=== PATIENT | male | born 1995 ===

== ENCOUNTER 2022-11-14 10:48 | Outpatient (REF) | payer OTHER, SELFPAY ==
[2022-11-14 11:35] LABS: Hematocrit 48.4 % (42.0-52.0); Hemoglobin 15.6 g/dl (14.0-18.0); Mean Corpuscular HGB Conc 32.2 g/dl (31.0-36.0); Mean Corpuscular Hemoglobin 27.8 pg (27.0-33.0); Mean Corpuscular Volume 86.1 fL (80.0-98.0); Mean Platelet Volume 8.8 fL (9.4-12.4); Platelet Count 374 X10*3/uL (160-400); Red Blood Count 5.62 X10*6/uL (4.60-5.80); Red Cell Distribution Width 12.7 % (11.0-16.0); White Blood Count 9.4 X10*3/uL (4.8-10.8)
[2022-11-14 13:11] LABS: Alanine Aminotransferase 52 U/L (0-40); Albumin Level 4.6 g/dL (3.5-5.0); Alkaline Phosphatase 75 U/L (39-117); Anion Gap 13 (12-20); Aspartate Amino Transferase 32 U/L (5-37); Bilirubin Total 0.4 mg/dL (0.0-1.0); Blood Urea Nitrogen 11 mg/dL (9-16); Calcium 10.3 mg/dL (8.4-10.2); Carbon Dioxide 25 mmol/L (22-29); Chloride 104 mmol/L (96-108); Cholesterol 264 mg/dL; Estimated Glomerular Filt Rate > 60; Glucose Fasting 88 mg/dL (60-99); HDL Cholesterol 29 mg/dL; Sodium 138 mmol/L (135-145); TSH reflex Free T4 4.81 uIU/mL (0.32-4.0); Total Protein 8.5 g/dL (6.5-8.0); Triglycerides 431 mg/dL
[2022-11-14 13:51] LABS: Free T4 (Free Thyroxine) 0.85 ng/dL (0.71-1.85)
== END 2022-11-14 10:49 | disposition home or self-care (01) ==
LOC: HO.LAB 10:48
PROVIDERS: PCP Physician Assistant; Visit Provider Physician Assistant
DX: Z13.29 Encounter for screening for other suspected endocrine disorder (principal); E66.09 Other obesity due to excess calories; Z68.38 Body mass index [BMI] 38.0-38.9, adult
CPT/HCPCS: 36415; 80053; 80061; 84439; 84443; 85027

== ENCOUNTER 2022-11-16 13:56 | Outpatient (AMB) | payer OTHER, SELFPAY ==
[2022-11-16 13:58] VITALS: BP 136/72; PULSE 80; O2SAT 98; BMI 40.0
--- NOTE | 2022-11-16 13:58 | MHC.PC.OV ---
Vital Signs 11/16/22 13:58 Height 5 ft 11 in Weight 287 lb BMI 40.0 BP 136/72 Blood Pressure Location Lt brachial Position Sitting Pulse 80 Pulse Source Pulse Oximeter Pulse Oximetry (%) 98 Oxygen Delivery Method Room Air Intake Visit Reasons: Annual PE Allergies No Known Allergies Allergy (Verified 11/16/22 14:09) Medication List - Last Reconciled 11/16/22 by Raghu Tan PA-C No Known Home Meds Tobacco use date assessed: 07/11/22 Dental Screening Dental Screen Date: 11/16/22 Did you have a dental visit in the last 12 months?: Yes Did you have a dental problem in the last 6 months where you did not have access to dental care?: No Was dental information given to patient?: Patient has dentist HPI Annual PE HPI Details Patient is a 26-year-old male Turkmen-speaking only here today for routine annual physical Patient's past medical history significant for generalized anxiety disorder major depressive disorder, obesity Reviewed labs today in a his with patient family and noted slightly elevated liver enzymes and an elevated TSH. Obesity: Has unfortunately gained weight since last office visit. Depression/ anxiety: Patient is interested in starting to speak with a mental health therapist for cognitive behavioral therapy Vaccine: Needs Tdap up-to-date with COVID vaccine ? Laboratory Tests 11/14/22 11/14/22 11:16 11:16 RBC 5.62 ALT 52 H Cholesterol 264 TSH 4.81 H PFSH Surgical History No pertinent past surgical history Family History Mother No problems noted. Father Hypertension Social History Housing: Apartment Alcohol intake: never Patient Tobacco Use Status: Never used Tobacco e-Cigarette/Vaping Use: Never Used Second Hand Smoke Exposure: No service: No Current occupational status: unemployed Cognitive needs: No Hearing needs: No Vision needs: No Questionnaire PHQ-9 Over the last 2 weeks, how often have you been bothered by any of the following problems? 1. Little interest or pleasure in doing things: more than half the days 2. Feeling down, depressed, or hopeless: more than half the days 3. Trouble falling or staying asleep, or sleeping too much: not at all 4. Feeling tired or having little energy: not at all 5. Poor appetite or overeating: more than half the days 6. Feeling bad about yourself - or that you are a failure or have let yourself or your family down: nearly every day 7. Trouble concentrating on things, such as reading the newspaper or watching television: nearly every day 8. Moving or speaking so slowly that other people could have noticed. Or the opposite - being so fidgety or restless that you have been moving around a lot more than usual: more than half the days 9. Thoughts that you would be better off or of hurting yourself in some way: not at all Total score: 14 Depression Screening Interpretation: Positive 42750 - PHQ-9 Billing: Yes Source: Developed by Drs. Houston Coles, Pau Leary, Murray Quick and colleagues, with an educational rios from [employer]. Thrive Questionnaire Date Thrive assessed: 07/11/22 AUDIT C Alcohol Use Questionnaire (AUDIT-C) 1. How often do you have a drink containing alcohol?: Never Total Score: 0 JAMES-7 AMB Questionnaire JAMES-7 Date JAMES - 7 assessed: 11/16/22 Feeling nervous, anxious, or on edge: 3 = Nearly every day Not being able to stop or control worryin = Nearly every day Worrying too much about different things: 3 = Nearly every day Trouble relaxin = Nearly every day Being so restless that it is hard to sit still: 0 = Not at all Becoming easily annoyed or irritable: 3 = Nearly every day Feeling afraid as if something awful might happen: 0 = Not at all Total JAMES-7 score (0-4 normal; 5-9 mild; 10-14 moderate; 15-21 severe): 15 Source: Developed by Drs. Houston Coles, Pau Leary, Murray Quick and colleagues, with an educational rios from [employer]. JAMES-7 Assessment Billing JAMES-7 Assessment Tool: JAMES-7 Assessment 83859 Review of Systems Const Denies body aches, Denies chills, Denies excessive sweating, Denies fatigue, Denies fever(s) and Denies headache(s) Eyes Denies blurry vision ENT Denies dysphagia, Denies vertigo, Denies dizziness, Denies headache(s), Denies hearing loss and Denies tinnitus Card Denies chest pain, Denies chest pain with activity, Denies syncope, Denies irregular heart rhythm and Denies dyspnea Resp Denies chest congestion, Denies cough, Denies hemoptysis, Denies dyspnea and Denies wheezing GI Denies abdominal pain, Denies melena, Denies hematochezia, Denies coffee ground emesis, Denies dysphagia, Denies diarrhea, Denies nausea and Denies vomiting Denies difficulty urinating, Denies dysuria, Denies urinary frequency, Denies urinary hesitancy and Denies urinary urgency Musc Denies arthralgias, Denies limited range of motion, Denies muscle cramps and Denies muscle weakness Skin/Breast Denies rash and Denies skin ulcer Neuro Denies Abnormal speech present, Denies confusion, Denies vertigo, Denies dizziness, Denies syncope, Denies headache(s), Denies memory loss and Denies seizure-like activity Psych Denies anxiety, Denies confusion, Denies depression, Denies memory loss, Denies panic attacks and Denies paranoia Endo Denies excessive sweating, Denies fatigue, Denies flushing, Denies polydipsia and Denies polyuria Aller/Immun Denies wheezing Physical exam (Primary Care) Vital Signs: Last Vital Signs Pulse 80 11/16/22 13:58 BP 136/72 11/16/22 13:58 Pulse Ox 98 11/16/22 13:58 Oxygen Delivery Method Room Air 11/16/22 13:58 BMI result Body Mass Index 40.0 BMI Assessment/Plan discussion: High Tobacco/Smoking Status: Tobacco use Status Tobacco use date assessed 07/11/22 11/16/22 14:06 Patient Tobacco Use Status Never used Tobacco 11/16/22 14:06 e-Cigarette/Vaping Use Never Used 11/16/22 14:06 PHQ-9: PHQ-9 Score PHQ-9: Total score 14 11/16/22 14:28 Depression Screening Interpretation: Positive Thrive Assessment: Date of Thrive Assessment Date Thrive assessed 07/11/22 11/16/22 14:06 Const Other: Obese General: cooperative, comfortable, no acute distress, alert and awake; No confusion Orientation/consciousness: oriented to person, oriented to place, patient oriented x3 and No confusion HENMT Head: Yes normocephalic Ears: external ears normal and TM's normal bilaterally Face and sinus: No sinus tenderness Mouth: Normal oral and palatal mucosa present and tongue normal Teeth and gingiva: dentition normal and gingiva normal Throat: Yes posterior oropharynx normal, Yes tonsils normal and Yes uvula midline Eyes Conjunctivae: conjunctivae normal Sclerae: sclerae normal Pupils: Equal, round and reactive pupils present EOM: EOMs intact bilaterally Direct Ophthalmoscopy: No no photophobia Neck Neck: Yes no lymphadenopathy, No tender and Yes no JVD Thyroid: Thyroid normal Carotids: no bruits Chest Chest palpation & inspection: no tenderness Resp Effort & Inspection: normal respiratory effort, no audible wheezes, not labored and no stridor Auscultation: no crackles, no rales, no rhonchi and no wheezes Cardio Jugular venous distension: no JVD Rate: regular rate, not bradycardic and not tachycardic Rhythm: regular rhythm Bruits: no carotid bruits Peripheral pulses: Peripheral pulses 2+ throughout GI Inspection: Yes normal to inspection, No abdominal wall ecchymosis and No visible herniation Palpation (GI): Soft to palpation, nontender, no guarding, not rigid and No hepatosplenomegaly present Auscultation: normoactive bowel sounds General: Yes no CVA tenderness Back/Spine/Pelvis Back: no CVA tenderness and No back tenderness Cervical Spine: cervical ROM normal Thoracic/Lumbar Spine: thoracic and lumbar spine normal to inspection, straight leg raise negative bilaterally, No thoraco-lumbar ROM limited and No lumbar spinal tenderness Skin Lesions: no lesions Rashes: no rashes Wounds: no wounds Neuro General: oriented to person, oriented to place, patient oriented x3, CN's II-XI intact bilaterally and No confusion Cranial nerves: Yes Equal, round and reactive pupils present and Yes Normal accommodation reflex present Cognition (Neuro): normal cognition Speech: No Abnormal speech present Gait exam (Neuro): Normal gait present Motor exam (neuro): 5/5 motor strength present throughout Extrem Right upper extremity: full ROM; no cyanosis Left upper extremity: full ROM; no cyanosis Right lower extremity: no edema Left lower extremity: no edema Psych Appearance: grossly normal Mental Status: mental status grossly normal Affect: normal affect Attitude: cooperative Thought process: Normal thought process present Immunizations Boostrix Tdap Performing Provider: Raghu Tan PA-C Administered by: Zamzam Escobar CMA on 11/16/22 14:29 Dose Route Admin Location Lot Number Expiration Date NDC It Network Architect 0.5 mL IM Left Deltoid [id number] 01/31/25 [id number] [employer] VIS Given Date VIS Provided VIS Publication Date 11/16/22 Single Vaccine 20 Eligibility Eligibility Date Funding Source Not [facility] Eligible 11/16/22 Private Assessment and Plan Assessment & Plan (1) Annual physical exam: Code(s): Z00.00 - Encounter for general adult medical examination without abnormal findings (2) Hypothyroid: Code(s): E03.9 - Hypothyroidism, unspecified Qualifiers: Hypothyroidism type: unspecified Qualified Code(s): E03.9 - Hypothyroidism, unspecified Plan: Noted elevated PSA and much recent labs. Unfortunately noted 9 lb weight gain since last office visit. Patient willing to start low-dose levothyroxine 25 mcg. Will recheck TSH in 6 weeks. (3) MDD (major depressive disorder), recurrent episode, moderate: Code(s): F33.1 - Major depressive disorder, recurrent, moderate Plan: Patient's PHQ-9 positive for mild to moderate depression which has been existing condition for him. He is willing now to start medication is speak with a mental health therapist. Otherwise denies any SI or HI (4) JAMES (generalized anxiety disorder): Code(s): F41.1 - Generalized anxiety disorder Plan: Patient's JAMES-7 score positive for mild anxiety. He is willing to start up SSRI therapy for both his anxiety and depression. (5) Obese: Code(s): E66.9 - Obesity, unspecified Qualifiers: Body mass index: BMI 38.0-38.9 Obesity classification: adult class 2 (BMI 35 - 39.9) Obesity type: due to excess calories Serious obesity comorbidity presence: without serious comorbidity Qualified Code(s): E66.09 - Other obesity due to excess calories; Z68.38 - Body mass index [BMI] 38.0-38.9, adult Plan: Patient does understand his BMI is above 40 and will work on being more physically active and adapted better eating habits to reduce his weight (6) HLD (hyperlipidemia): Code(s): E78.5 - Hyperlipidemia, unspecified Qualifiers: Hyperlipidemia type: mixed hyperlipidemia Qualified Code(s): E78.2 - Mixed hyperlipidemia Plan: Patient's most recent lipid panel showing very elevated total cholesterol and triglycerides in the setting of an under active thyroid. Will treat thyroid and recheck lipid panel in the next 6 weeks. Orders: Orders TSH reflex Free T4 6 Weeks E03.9 - Hypothyroidism, unspecified Lipid Panel 6 Weeks E78.2 - Mixed hyperlipidemia TDaP Immunization Today Z23 - Encounter for immunization Referrals Counseling Referral F33.1 - Major depressive disorder, recurrent, moderate Medications: New levothyroxine 25 mcg PO DAILY 30 days 30 tabs 3RF E03.9 - Hypothyroidism, unspecified sertraline (Zoloft) 50 mg PO DAILY 30 tabs 1RF F41.1 - Generalized anxiety disorder Coding Level of Care Code Est Pt Prev Care 18-39y(06329) Diagnoses Annual physical exam Z00.00 Hypothyroid E03.9 Hypothyroidism type: unspecified MDD (major depressive disorder), recurrent episode, moderate F33.1 JAMES (generalized anxiety disorder) F41.1 Obese E66.09; Z68.38 Body mass index: BMI 38.0-38.9 Obesity classification: adult class 2 (BMI 35 - 39.9) Obesity type: due to excess calories Serious obesity comorbidity presence: without serious comorbidity HLD (hyperlipidemia) E78.2 Hyperlipidemia type: mixed hyperlipidemia Additional Codes JAMES-7 Assessment Billing - JAMES-7 Assessment Tool: JAMES-7 Assessment 74102 ([id number])
== END 2022-11-16 14:33 | disposition home or self-care (01) ==
PROVIDERS: PCP Physician Assistant; Visit Provider Physician Assistant
DX: Z00.00 Encounter for general adult medical examination without abnormal findings (principal); E66.09 Other obesity due to excess calories; Z68.38 Body mass index [BMI] 38.0-38.9, adult; Z23 Encounter for immunization; F33.1 Major depressive disorder, recurrent, moderate; E03.9 Hypothyroidism, unspecified; F41.1 Generalized anxiety disorder; E78.2 Mixed hyperlipidemia
CPT/HCPCS: 90471; 90715; 99395

== ENCOUNTER 2022-12-27 10:01 | Outpatient (REF) | payer OTHER, SELFPAY ==
[2022-12-27 11:17] LABS: Cholesterol 239 mg/dL (<200); HDL Cholesterol 28 mg/dL (>40); Triglycerides 408 mg/dL (<150)
[2022-12-27 11:32] LABS: TSH reflex Free T4 0.33 uIU/mL (0.32-4.0)
== END 2022-12-27 10:02 | disposition home or self-care (01) ==
LOC: HO.LAB 10:01
PROVIDERS: PCP Physician Assistant; Visit Provider Physician Assistant
DX: E03.9 Hypothyroidism, unspecified (principal); E78.2 Mixed hyperlipidemia
CPT/HCPCS: 36415; 80061; 84443

== ENCOUNTER 2023-07-24 08:44 | Outpatient (AMB) | payer OTHER, SELFPAY ==
--- NOTE | 2023-07-24 09:03 | A.OFFPC_ITS ---
Vital Signs 07/24/23 09:05 Height 5 ft 11 in Weight 294 lb 8 oz BMI 41.1 BP 132/84 Blood Pressure Location Lt brachial Position Sitting Pulse 86 Pulse Source Pulse Oximeter Pulse Oximetry (%) 96 Oxygen Delivery Method Room Air Intake Visit Reasons: Follow-up hypothyroidism/depression Intake Note: Patient is here to follow up on hypothyroidism, Depression. Machine Packaging Technician Required: No Wrecking Crane Engine Operator: Not Required per policy Accompanied by: Self / Same As Patient Allergies No Known Allergies Allergy (Verified 07/24/23 09:05) Tobacco use date assessed: 07/24/23 Dental Screening Dental Screen Date: 07/24/23 Did you have a dental visit in the last 12 months?: No Did you have a dental problem in the last 6 months where you did not have access to dental care?: No Was dental information given to patient?: No HPI Follow-up hypothyroidism/depression HPI Details Patient is a 27-year-old male Martiniquais-speaking only here today for follow-up visit. Patient's past medical history significant for generalized anxiety disorder major depressive disorder, hyperlipidemia, obesity. Concern--> reports he snores very loudly at night and his tells him he has stop breathing on several occasions while sleeping. He does have high risk for obstructive sleep apnea thus will send for home sleep study to evaluate for obstructive sleep apnea. . Hyperlipidemia: Most recent lipid panel showing elevated total cholesterol and triglycerides. PLAN: Will try to set patient up with Martiniquais-speaking musician instrumental to work with patient on healthier eating habits. Obesity: Has unfortunately gained weight since last office visit. He reports he has not been to physically active and recently joined gym. Depression/ anxiety: Patient is now speaking with a mental health therapist. He continues on Zoloft which has been somewhat effective non reducing his depression. Laboratory Tests 11/14/22 11/14/22 12/27/22 11:16 11:16 10:18 Triglycerides 431 408 H Cholesterol 264 12/27/22 10:18 Triglycerides Cholesterol 239 H [facility] Surgical History No pertinent past surgical history Family History Mother No problems noted. Father Hypertension Social History Housing: Apartment Alcohol intake: never Patient Tobacco Use Status: Never used Tobacco e-Cigarette/Vaping Use: Never Used Second Hand Smoke Exposure: No service: No Current occupational status: unemployed Cognitive needs: No Hearing needs: No Vision needs: No Questionnaire PHQ-9 Over the last 2 weeks, how often have you been bothered by any of the following problems? 1. Little interest or pleasure in doing things: not at all 2. Feeling down, depressed, or hopeless: not at all 3. Trouble falling or staying asleep, or sleeping too much: not at all 4. Feeling tired or having little energy: not at all 5. Poor appetite or overeating: not at all 6. Feeling bad about yourself - or that you are a failure or have let yourself or your family down: not at all 7. Trouble concentrating on things, such as reading the newspaper or watching television: not at all 8. Moving or speaking so slowly that other people could have noticed. Or the opposite - being so fidgety or restless that you have been moving around a lot more than usual: not at all 9. Thoughts that you would be better off or of hurting yourself in some way: not at all Total score: 0 Depression Screening Interpretation: Negative Depression Screening Done: Yes Source: Developed by Drs. Houston Coles, Pau Leary, Murray Quick and colleagues, with an educational rios from [employer]. Thrive Questionnaire Date Thrive assessed: 07/24/23 I am a: Patient What is your living situation today?: I have a steady place to live Within the past 12 months, did the food you bought not last and you didn't have the money to get more?: Never true Within the past 12 months, did you worry whether your food would run out before you got money to buy more?: Never true Do you have trouble paying for medicines?: No Do you have trouble getting transportation to medical appointments?: No Do you have trouble paying your heating and electricity bill?: No Do you have trouble taking care of your child, family member or friend?: No Do you have trouble with day-to-day activities such as bathing, preparing meals, shopping, managing finances, etc.?: No Are you currently unemployed and looking for a job?: No Are you interested in more education?: No Currently or been in a relationship where the following occur: no concerns reported THRIVE Score: 0 AUDIT C Alcohol Use Questionnaire (AUDIT-C) 1. How often do you have a drink containing alcohol?: Never Total Score: 0 JAMES-7 AMB Questionnaire JAMES-7 Date JAMES - 7 assessed: 07/24/23 Feeling nervous, anxious, or on edge: 0 = Not at all Not being able to stop or control worryin = Not at all Worrying too much about different things: 0 = Not at all Trouble relaxin = Not at all Being so restless that it is hard to sit still: 0 = Not at all Becoming easily annoyed or irritable: 0 = Not at all Feeling afraid as if something awful might happen: 0 = Not at all Total JAMES-7 score (0-4 normal; 5-9 mild; 10-14 moderate; 15-21 severe): 0 Source: Developed by Drs. Houston Coles, Pau Leary, Murray Qiuck and colleagues, with an educational rios from [employer]. JAMES-7 Assessment Billing JAMES-7 Assessment Tool: JAMES-7 Assessment 50208 Review of Systems Const Denies headache(s) Eyes Denies loss of vision ENT Denies vertigo, Denies dizziness, Denies headache(s) and Denies sore throat Card Denies chest pain, Denies leg edema and Denies lightheadedness Resp Denies cough, Denies hemoptysis and Denies wheezing GI Denies abdominal pain, Denies melena, Denies constipation, Denies diarrhea and Denies vomiting Denies dysuria, Denies urinary frequency and Denies urinary urgency Musc Denies arthralgias, Denies joint swelling, Denies numbness and Denies tingling Neuro Denies Abnormal speech present, Denies behavioral changes, Denies vertigo, Denies dizziness, Denies headache(s), Denies loss of vision, Denies memory loss, Denies numbness and Denies tingling Psych Denies anxiety, Denies behavioral changes, Denies depression, Denies memory loss and Denies panic attacks Aguilar/Lymph Denies easy bleeding and Denies easy bruising Aller/Immun Denies wheezing Physical exam (Primary Care) Vital Signs: Last Vital Signs Pulse 86 07/24/23 09:05 BP 132/84 07/24/23 09:05 Pulse Ox 96 07/24/23 09:05 Oxygen Delivery Method Room Air 07/24/23 09:05 BMI result Body Mass Index 41.1 Tobacco/Smoking Status: Tobacco use Status Tobacco use date assessed 07/24/23 07/24/23 09:09 Patient Tobacco Use Status Never used Tobacco 07/24/23 09:09 e-Cigarette/Vaping Use Never Used 07/24/23 09:09 PHQ-9: PHQ-9 Score PHQ-9: Total score 0 07/24/23 09:09 Depression Screening Interpretation: Negative Thrive Assessment: Date of Thrive Assessment Date Thrive assessed 07/24/23 07/24/23 09:09 Currently or been in a relationship where the following occur: no concerns reported Const General: healthy appearing, no acute distress, alert and awake Nutritional Appearance: well nourished Orientation/consciousness: oriented to person, oriented to place and oriented to time HENMT Ears: TM's normal bilaterally General nose exam: Normal nasal mucous membranes and turbinates present Eyes Conjunctivae: conjunctivae normal Sclerae: sclerae normal Pupils: Equal, round and reactive pupils present Neck Neck: Yes no lymphadenopathy and Yes no JVD Thyroid: Thyroid normal Carotids: no bruits Resp Effort & Inspection: normal respiratory effort and not tachypneic Auscultation: no crackles, no rales, no rhonchi and no wheezes Cardio Rate: regular rate Rhythm: regular rhythm Heart sounds: no murmurs and normal S1 and S2 GI Palpation (GI): Soft to palpation, nontender, no hepatomegaly and no splenomegaly Auscultation: normal bowel sounds Skin General skin exam: no rashes or lesions noted and dry skin Neuro General: oriented to person, oriented to place and oriented to time Cranial nerves: Yes Equal, round and reactive pupils present Speech: No Abnormal speech present Gait exam (Neuro): Normal gait present Motor exam (neuro): no tremor noted Extrem Right upper extremity: full ROM Left upper extremity: full ROM Right lower extremity: full ROM; no edema Left lower extremity: full ROM; no edema Psych Mental Status: mental status grossly normal Speech and movement: Normal speech and movement present Affect: normal affect Attitude: cooperative Thought process: Normal thought process present Assessment and Plan Assessment & Plan (1) Hypothyroid: Code(s): E03.9 - Hypothyroidism, unspecified Qualifiers: Hypothyroidism type: unspecified Qualified Code(s): E03.9 - Hypothyroidism, unspecified Plan: Patient's most recent TSH stable. Will recheck TSH to assure normal. Will continue levothyroxine 25 mcg. (2) MDD (major depressive disorder), recurrent episode, moderate: Code(s): F33.1 - Major depressive disorder, recurrent, moderate Plan: Patient now speaking with a mental health therapist. Zoloft that has been helpful for his depression. He will try to be more physically active and has joined the gym to help him with his depression as well. Otherwise denies any SI or HI (3) Obese: Code(s): E66.9 - Obesity, unspecified Qualifiers: Obesity type: due to excess calories Obesity classification: adult class 2 (BMI 35 - 39.9) Serious obesity comorbidity presence: without serious comorbidity Body mass index: BMI 38.0-38.9 Qualified Code(s): E66.09 - Other obesity due to excess calories; Z68.38 - Body mass index [BMI] 38.0-38.9, adult Plan: Patient does understand his BMI is above 40 and will work on being more physically active and adapted better eating habits to reduce his weight (4) HLD (hyperlipidemia): Code(s): E78.5 - Hyperlipidemia, unspecified Qualifiers: Hyperlipidemia type: mixed hyperlipidemia Qualified Code(s): E78.2 - Mixed hyperlipidemia Plan: Patient's most recent lipid panel showing very elevated total cholesterol and triglycerides . Will try to set patient up with musician instrumental to help him with better eating habits . He will try to work on dietary modifications on his own and being more physically active to lose weight. (5) BALWINDER (obstructive sleep apnea): Code(s): G47.33 - Obstructive sleep apnea (adult) (pediatric) Plan: STOP BANG- HIGH RISK FOR BALWINDER. Will send her home sleep study to evaluate for obstructive sleep apnea. Orders: Orders Lipid Panel Today E78.2 - Mixed hyperlipidemia TSH reflex Free T4 Today E03.9 - Hypothyroidism, unspecified Comprehensive [place]. Panel Fast Today E78.2 - Mixed hyperlipidemia RT home sleep study Today G47.33 - Obstructive sleep apnea (adult) (pediatric) Referrals Nutrition/Dietitian Referral E78.2 - Mixed hyperlipidemia Medications: Refilled sertraline (Zoloft) 50 mg PO DAILY 30 tabs 4RF F41.1 - Generalized anxiety disorder levothyroxine 25 mcg PO DAILY 30 days 30 tabs 4RF E03.9 - Hypothyroidism, unspecified Coding Level of Care Code Est Pt Level 4 (47783) Diagnoses Hypothyroidism, unspecified type E03.9 Hypothyroidism type: unspecified MDD (major depressive disorder), recurrent episode, moderate F33.1 Class 2 obesity due to excess calories without serious comorbidity with body mass index (BMI) of 38.0 to 38.9 in adult E66.09; Z68.38 Obesity type: due to excess calories Obesity classification: adult class 2 (BMI 35 - 39.9) Serious obesity comorbidity presence: without serious comorbidity Body mass index: BMI 38.0-38.9 Mixed hyperlipidemia E78.2 Hyperlipidemia type: mixed hyperlipidemia BALWINDER (obstructive sleep apnea) G47.33 Additional Codes JAMES-7 Assessment Billing - JAMES-7 Assessment Tool: JAMES-7 Assessment [id number] ([id number])
[2023-07-24 09:05] VITALS: BP 132/84; PULSE 86; O2SAT 96; BMI 41.1
== END 2023-07-24 09:23 | disposition home or self-care (01) ==
PROVIDERS: PCP Physician Assistant; Visit Provider Physician Assistant
DX: E03.9 Hypothyroidism, unspecified (principal); F33.1 Major depressive disorder, recurrent, moderate; E66.09 Other obesity due to excess calories; Z68.38 Body mass index [BMI] 38.0-38.9, adult; E78.2 Mixed hyperlipidemia; G47.33 Obstructive sleep apnea (adult) (pediatric)
CPT/HCPCS: 99214

== ENCOUNTER 2023-11-26 08:22 | Outpatient (REF) | payer OTHER, SELFPAY ==
[2023-11-26 09:30] LABS: Alanine Aminotransferase 42 U/L (0-40); Albumin Level 4.6 g/dL (3.5-5.0); Alkaline Phosphatase 82 U/L (39-117); Anion Gap 12 (12-20); Aspartate Amino Transferase 31 U/L (5-37); Bilirubin Total 0.4 mg/dL (0.0-1.0); Blood Urea Nitrogen 10 mg/dL (9-16); Calcium 10.1 mg/dL (8.4-10.2); Carbon Dioxide 27 mmol/L (22-29); Chloride 105 mmol/L (96-108); Cholesterol 262 mg/dL (<200); Estimated Glomerular Filt Rate > 60; Glucose Fasting 95 mg/dL (60-99); HDL Cholesterol 28 mg/dL (>40); Potassium 4.2 mmol/L (3.3-5.1); Sodium 140 mmol/L (135-145); Total Protein 8.4 g/dL (6.5-8.0); Triglycerides 415 mg/dL (<150)
[2023-11-26 10:12] LABS: TSH reflex Free T4 2.71 uIU/mL (0.32-4.0)
== END 2023-11-26 08:23 | disposition home or self-care (01) ==
LOC: HO.LAB 08:22
PROVIDERS: PCP Physician Assistant; Visit Provider Physician Assistant
DX: E78.2 Mixed hyperlipidemia (principal); E03.9 Hypothyroidism, unspecified
CPT/HCPCS: 36415; 80053; 80061; 84443

== ENCOUNTER 2023-11-26 09:34 | Outpatient (AMB) | payer OTHER, SELFPAY ==
--- NOTE | 2023-11-26 09:32 | MHC.PC.OV ---
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 Electrical Electronics Engineers Language: Belarusian Accompanied by: Friend Allergies No Known Allergies Allergy (Verified 11/26/23 09:42) Medication List - Last Reconciled 11/26/23 by Raghu Tan PA-C aripiprazole 5 mg PO DAILY buspirone 10 mg PO TID escitalopram oxalate 20 mg PO DAILY levothyroxine 25 mcg PO DAILY 30 days levothyroxine 25 mcg PO DAILY 30 days melatonin 5 mg PO BEDTIME risperidone 1 mg PO BEDTIME sertraline (Zoloft) 50 mg PO DAILY sertraline (Zoloft) 50 mg PO DAILY Tobacco use date assessed: 07/24/23 Dental Screening Dental Screen Date: 07/24/23 HPI PE HPI Details Patient is a 27-year-old male Bel[place]ian-speaking only here today for a Routine PE. Patient's past medical history significant for generalized anxiety disorder major depressive disorder, hyperlipidemia, obesity. Concern--> reports he snores very loudly at night and his tells him he has stop breathing on several occasions while sleeping. He does have high risk for obstructive sleep apnea thus will send for home sleep study to evaluate for obstructive sleep apnea. Sleep study was ordered though was unable to do testing due to his needing a kidney transplant and being back and forth to the hospital. He would like to get sleep study done. . Hyperlipidemia: Most recent lipid panel showing elevated total cholesterol and triglycerides. PLAN: Will start hypertrig med. Obesity: Has lost 8 lb since last office visit. He reports he has not been to physically active and recently joined gym. Depression/ anxiety: Patient is now speaking with a mental health therapist. He continues on Zoloft which has been somewhat effective non reducing his depression. Vaccine: UTD with Tdap and COVID. Not interested in flu vaccine. Will consider pneumonia vaccine if has obstructive sleep apnea Laboratory Tests 12/27/22 11/26/23 10:18 08:34 Creatinine 0.89 Fasting Glucose 95 Triglycerides 408 H 415 H PFSH Surgical History No pertinent past surgical history Family History Mother No problems noted. Father Hypertension Social History Housing: Apartment Alcohol intake: never Patient Tobacco Use Status: Never used Tobacco e-Cigarette/Vaping Use: Never Used Second Hand Smoke Exposure: No service: No Current occupational status: unemployed Cognitive needs: No Hearing needs: No Vision needs: No Questionnaire Thrive Questionnaire Date Thrive assessed: 07/24/23 JAMES-7 AMB Questionnaire JAMES-7 Date JAMES - 7 assessed: 07/24/23 Source: Developed by Drs. Houston Coles, Pau Leary, Murray Quick and colleagues, with an educational rios from [employer]. Review of Systems Const Denies body aches, Denies chills, Denies excessive sweating, Denies fatigue, Denies fever(s) and Denies headache(s) Eyes Denies blurry vision ENT Denies dysphagia, Denies vertigo, Denies dizziness, Denies headache(s), Denies hearing loss and Denies tinnitus Card Denies chest pain, Denies chest pain with activity, Denies syncope, Denies irregular heart rhythm and Denies dyspnea Resp Denies chest congestion, Denies cough, Denies hemoptysis, Denies dyspnea and Denies wheezing GI Denies abdominal pain, Denies melena, Denies hematochezia, Denies coffee ground emesis, Denies dysphagia, Denies diarrhea, Denies nausea and Denies vomiting Denies difficulty urinating, Denies dysuria, Denies urinary frequency, Denies urinary hesitancy and Denies urinary urgency Musc Denies arthralgias, Denies limited range of motion, Denies muscle cramps and Denies muscle weakness Skin/Breast Denies rash and Denies skin ulcer Neuro Denies Abnormal speech present, Denies confusion, Denies vertigo, Denies dizziness, Denies syncope, Denies headache(s), Denies memory loss and Denies seizure-like activity Psych Denies anxiety, Denies confusion, Denies depression, Denies memory loss, Denies panic attacks and Denies paranoia Endo Denies excessive sweating, Denies fatigue, Denies flushing, Denies polydipsia and Denies polyuria Aller/Immun Denies wheezing Physical exam (Primary Care) Vital Signs: Last Vital Signs Pulse 68 11/26/23 09:36 BP 128/84 11/26/23 09:36 Pulse Ox 96 11/26/23 09:36 Oxygen Delivery Method Room Air 11/26/23 09:36 BMI result Body Mass Index 39.9 Tobacco/Smoking Status: Tobacco use Status Tobacco use date assessed 07/24/23 11/26/23 09:32 Patient Tobacco Use Status Never used Tobacco 11/26/23 09:32 e-Cigarette/Vaping Use Never Used 11/26/23 09:32 Thrive Assessment: Date of Thrive Assessment Date Thrive assessed 07/24/23 11/26/23 09:32 Const General: cooperative, comfortable, no acute distress, alert and awake; No confusion Orientation/consciousness: oriented to person, oriented to place, patient oriented x3 and No confusion HENMT Head: Yes normocephalic Ears: external ears normal and TM's normal bilaterally Face and sinus: No sinus tenderness Mouth: Normal oral and palatal mucosa present and tongue normal Teeth and gingiva: dentition normal and gingiva normal Throat: Yes posterior oropharynx normal, Yes tonsils normal and Yes uvula midline Eyes Conjunctivae: conjunctivae normal Sclerae: sclerae normal Pupils: Equal, round and reactive pupils present EOM: EOMs intact bilaterally Direct Ophthalmoscopy: No no photophobia Neck Neck: Yes no lymphadenopathy, No tender and Yes no JVD Thyroid: Thyroid normal Carotids: no bruits Chest Chest palpation & inspection: no tenderness Resp Effort & Inspection: normal respiratory effort, no audible wheezes, not labored and no stridor Auscultation: no crackles, no rales, no rhonchi and no wheezes Cardio Jugular venous distension: no JVD Rate: regular rate, not bradycardic and not tachycardic Rhythm: regular rhythm Bruits: no carotid bruits Peripheral pulses: Peripheral pulses 2+ throughout GI Inspection: Yes normal to inspection, No abdominal wall ecchymosis and No visible herniation Palpation (GI): Soft to palpation, nontender, no guarding, not rigid and No hepatosplenomegaly present Auscultation: normoactive bowel sounds General: Yes no CVA tenderness Back/Spine/Pelvis Back: no CVA tenderness and No back tenderness Cervical Spine: cervical ROM normal Thoracic/Lumbar Spine: thoracic and lumbar spine normal to inspection, straight leg raise negative bilaterally, No thoraco-lumbar ROM limited and No lumbar spinal tenderness Skin Lesions: no lesions Rashes: no rashes Wounds: no wounds Neuro General: oriented to person, oriented to place, patient oriented x3, CN's II-XI intact bilaterally and No confusion Cranial nerves: Yes Equal, round and reactive pupils present and Yes Normal accommodation reflex present Cognition (Neuro): normal cognition Speech: No Abnormal speech present Gait exam (Neuro): Normal gait present Motor exam (neuro): 5/5 motor strength present throughout Extrem Right upper extremity: full ROM; no cyanosis Left upper extremity: full ROM; no cyanosis Right lower extremity: no edema Left lower extremity: no edema Psych Appearance: grossly normal Mental Status: mental status grossly normal Affect: normal affect Attitude: cooperative Thought process: Normal thought process present Assessment and Plan Assessment & Plan (1) Annual physical exam: Code(s): Z00.00 - Encounter for general adult medical examination without abnormal findings (2) Hypothyroid: Code(s): E03.9 - Hypothyroidism, unspecified Qualifiers: Hypothyroidism type: unspecified Qualified Code(s): E03.9 - Hypothyroidism, unspecified Plan: Patient's most recent TSH stable. Will recheck TSH to assure normal. Will continue levothyroxine 25 mcg. (3) MDD (major depressive disorder), recurrent episode, moderate: Code(s): F33.1 - Major depressive disorder, recurrent, moderate Plan: Patient now speaking with a mental health therapist and also seeing a psychiatrist who is managing his mental health medication. Zoloft that has been helpful for his depression. Otherwise denies any SI or HI (4) Obese: Code(s): E66.9 - Obesity, unspecified Qualifiers: Obesity type: due to excess calories Obesity classification: adult class 2 (BMI 35 - 39.9) Serious obesity comorbidity presence: without serious comorbidity Body mass index: BMI 38.0-38.9 Qualified Code(s): E66.09 - Other obesity due to excess calories; Z68.38 - Body mass index [BMI] 38.0-38.9, adult Plan: Has lost weight since last office visit. Has been more physically active. He will continue to go to the gym and work on dietary modifications. (5) HLD (hyperlipidemia): Code(s): E78.5 - Hyperlipidemia, unspecified Qualifiers: Hyperlipidemia type: mixed hyperlipidemia Qualified Code(s): E78.2 - Mixed hyperlipidemia Plan: Patient's most recent lipid panel showing very elevated total cholesterol and triglycerides . He is willing now to start triglyceride lowering medication. Will start fenofibrate Goal total cholesterol to be below 230 and goal triglycerides to be below 250 (6) BALWINDER (obstructive sleep apnea): Code(s): G47.33 - Obstructive sleep apnea (adult) (pediatric) Plan: STOP BANG- HIGH RISK FOR BALWINDER. Will send her home sleep study to evaluate for obstructive sleep apnea. Orders: Orders Lipid Panel 4 Months E78.1 - Pure hyperglyceridemia Complete Blood Count no Diff 4 Months E78.1 - Pure hyperglyceridemia TSH reflex Free T4 4 Months E03.9 - Hypothyroidism, unspecified RT home sleep study Today G47.33 - Obstructive sleep apnea (adult) (pediatric) Medications: New fenofibrate 54 mg PO DAILY 90 days 90 tabs 1RF E78.1 - Pure hyperglyceridemia Refilled levothyroxine 25 mcg PO DAILY 30 days 30 tabs 4RF E03.9 - Hypothyroidism, unspecified sertraline (Zoloft) 50 mg PO DAILY 30 tabs 4RF F41.1 - Generalized anxiety disorder Patient Instructions: Goal: Total cholesterol to be below 230, triglycerides to be below 250 Barriers: Adherence to physical activity and healthy eating habits Coding Level of Care Code Est Pt Prev Care 18-39y(23166) Diagnoses Annual physical exam Z00.00 Hypothyroidism, unspecified type E03.9 Hypothyroidism type: unspecified MDD (major depressive disorder), recurrent episode, moderate F33.1 Class 2 obesity due to excess calories without serious comorbidity with body mass index (BMI) of 38.0 to 38.9 in adult E66.09; Z68.38 Obesity type: due to excess calories Obesity classification: adult class 2 (BMI 35 - 39.9) Serious obesity comorbidity presence: without serious comorbidity Body mass index: BMI 38.0-38.9 Mixed hyperlipidemia E78.2 Hyperlipidemia type: mixed hyperlipidemia BALWINDER (obstructive sleep apnea) G47.33
[2023-11-26 09:36] VITALS: BP 128/84; PULSE 68; O2SAT 96; BMI 39.9
== END 2023-11-26 09:58 | disposition home or self-care (01) ==
LOC: HO.HMGH 09:34
PROVIDERS: PCP Physician Assistant; Visit Provider Physician Assistant
DX: Z00.00 Encounter for general adult medical examination without abnormal findings (principal); E03.9 Hypothyroidism, unspecified; F33.1 Major depressive disorder, recurrent, moderate; E66.09 Other obesity due to excess calories; Z68.38 Body mass index [BMI] 38.0-38.9, adult; E78.2 Mixed hyperlipidemia; G47.33 Obstructive sleep apnea (adult) (pediatric)
CPT/HCPCS: 99395

== ENCOUNTER → 2024-01-15 15:15 | Outpatient (REF) | payer OTHER, SELFPAY | LOC: HO.SL 15:15 | PROVIDERS: PCP Physician Assistant; Visit Provider Physician Assistant | DX: G47.33 Obstructive sleep apnea (adult) (pediatric) (principal) | CPT/HCPCS: 95806 ==

== ENCOUNTER → 2024-01-15 15:26 | Outpatient (BNV) | payer OTHER, SELFPAY | PROVIDERS: PCP Physician Assistant; Visit Provider Internal Medicine | DX: G47.33 Obstructive sleep apnea (adult) (pediatric) (principal) | CPT/HCPCS: 95806 ==

== ENCOUNTER 2024-02-26 09:50 | Outpatient (AMB) | payer OTHER, SELFPAY ==
[2024-02-26 09:53] VITALS: BP 132/86; PULSE 76; O2SAT 97; BMI 41.4
--- NOTE | 2024-02-26 09:53 | A.OFFVIS_ITS ---
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 Patient is interested in CPAP therapy. He denies prior personal history of lung disease or environmental allergies. He has complain of unrestful sleep and significant daytime sleepiness. His sleep study shows AHI of 71. [facility] Surgical History No pertinent past surgical history Family History Mother No problems noted. Father Hypertension Social History Housing: Apartment Alcohol intake: never Patient Tobacco Use Status: Never used Tobacco e-Cigarette/Vaping Use: Never Used Second Hand Smoke Exposure: No service: No Current occupational status: unemployed Cognitive needs: No Hearing needs: No Vision needs: No Review of Systems Const Denies daytime sleepiness, Denies excessive sweating, Reports fatigue, Denies fever(s), Reports lethargy, Reports malaise, Denies night sweats, Reports snoring and Denies weight loss Eyes Denies blurry vision and Denies itchy eyes ENT Denies nasal congestion, Denies post nasal drip, Denies sinus pain, Denies sinus pressure and Denies other ( Thrush) Card Denies chest pain, Denies pedal edema, Denies dyspnea, Denies orthopnea and Denies paroxysmal nocturnal dyspnea Resp Denies cough, Denies hemoptysis, Denies excessive phlegm production, Denies dyspnea, Reports snoring and Denies wheezing GI Denies abdominal pain and Denies heartburn Musc Denies myalgias, Denies arthralgias and Denies joint swelling Skin/Breast Denies rash Neuro Denies memory loss and Denies seizure-like activity Psych Denies abnormal sleep pattern, Denies anxiety and Denies memory loss Endo Denies excessive sweating, Reports fatigue and Denies heat intolerance Aguilar/Lymph Denies easy bruising Aller/Immun Denies itchy eyes, Denies seasonal rhinorrhea and Denies wheezing Physical Exam Vital Signs: Last Vital Signs Pulse 76 02/26/24 09:53 BP 132/86 02/26/24 09:53 Pulse Ox 97 02/26/24 09:53 Oxygen Delivery Method Room Air 02/26/24 09:53 BMI result Body Mass Index 41.4 Const General: no acute distress and alert Nutritional Appearance: not obese Orientation/consciousness: Other orientation findings ( oriented) HEENT Head: Yes atraumatic Eyes General: appearance normal, both eyes and all related structures Sclerae: sclerae normal EOM: EOMs intact bilaterally Neck Neck: Yes supple Lymphatic: no lymphadenopathy noted Resp Effort & Inspection: normal respiratory effort and no use of accessory muscles Auscultation: clear to auscultation bilaterally Cardio Rate: regular rate Rhythm: regular rhythm Heart sounds: no gallops, no murmurs and no rubs Skin General skin exam: other ( warm) Extrem General: No clubbing, No cyanosis and No edema Assessment & Plan Assessment & Plan (1) BALWINDER (obstructive sleep apnea): Code(s): G47.33 - Obstructive sleep apnea (adult) (pediatric) Category: Medical Plan: Results of sleep study reviewed, underlying severe obstructive sleep apnea with AHI of 71. Will start on APAP of 6-16 cm of water. Coding Level of Care Code New Pt Level 3 (13152) Diagnoses BALWINDER (obstructive sleep apnea) G47.33
== END 2024-02-26 10:15 | disposition home or self-care (01) ==
LOC: HO.HPS 09:51
PROVIDERS: PCP Physician Assistant; Visit Provider Internal Medicine Pulmonary Disease
DX: G47.33 Obstructive sleep apnea (adult) (pediatric) (principal)
CPT/HCPCS: 99203

== ENCOUNTER → 2024-02-26 09:50 | Outpatient (BNVA) | payer OTHER, SELFPAY | PROVIDERS: PCP Physician Assistant; Visit Provider Internal Medicine Pulmonary Disease | DX: G47.33 Obstructive sleep apnea (adult) (pediatric) (principal) | CPT/HCPCS: 99202 ==

== ENCOUNTER → 2024-03-12 19:30 | Outpatient (REF) | payer OTHER, SELFPAY | LOC: HO.SL 19:30 | PROVIDERS: PCP Physician Assistant; Visit Provider Physician Assistant | DX: G47.33 Obstructive sleep apnea (adult) (pediatric) (principal) | CPT/HCPCS: 95811 ==

== ENCOUNTER → 2024-03-12 21:20 | Outpatient (BNV) | payer OTHER, SELFPAY | PROVIDERS: PCP Physician Assistant; Visit Provider Internal Medicine | DX: G47.33 Obstructive sleep apnea (adult) (pediatric) (principal) | CPT/HCPCS: 95811 ==

== ENCOUNTER 2024-03-27 11:08 | Outpatient (AMB) | payer OTHER, SELFPAY ==
[2024-03-27 11:14] VITALS: BP 126/82; PULSE 88; O2SAT 95; BMI 42.1
--- NOTE | 2024-03-27 11:14 | A.OFFPC_ITS ---
Vital Signs 03/27/24 11:14 Height 5 ft 11 in Weight 302 lb BMI 42.1 BP 126/82 Blood Pressure Location Lt brachial Position Sitting Pulse 88 Pulse Source Pulse Oximeter Pulse Oximetry (%) 95 Oxygen Delivery Method Room Air Intake Visit Reasons: f/u HLD Radar Engineer Required: Yes Accompanied by: Self / Same As Patient Allergies No Known Allergies Allergy (Verified 03/27/24 11:26) Medication List - Last Reconciled 03/27/24 by Raghu Tan PA-C aripiprazole 5 mg PO DAILY buspirone 10 mg PO TID escitalopram oxalate 20 mg PO DAILY fenofibrate 54 mg PO DAILY 90 days levothyroxine 25 mcg PO DAILY 30 days melatonin 5 mg PO BEDTIME risperidone 1 mg PO BEDTIME sertraline (Zoloft) 50 mg PO DAILY Tobacco use date assessed: 03/27/24 Dental Screening Dental Screen Date: 03/27/24 Did you have a dental visit in the last 12 months?: No Did you have a dental problem in the last 6 months where you did not have access to dental care?: No Was dental information given to patient?: No HPI f/u HLD HPI Details Patient is a 28-year-old male Peruvian-speaking only here today for a a follow-up visit. Patient's past medical history significant for generalized anxiety disorder major depressive disorder, hyperlipidemia, obesity. Obstructive sleep apnea: Patient followed by [facility]. Patient's CPAP titration study did show very severe obstructive sleep apnea, recommendation made to start air fit medium size mask with bilevel pressures 17/13 cm . Hyperlipidemia: Most recent lipid panel showing elevated total cholesterol and triglycerides. He has been started fenofibrate which has been using continuous ly. Advised to get fasting labs done to evaluate his fasting cholesterol panel. Obesity: Unfortunately gained weight since last office visit. He reports he has not been to physically active Depression/ anxiety: Patient is now speaking with a mental health therapist. He continues on Zoloft and Abilify which has been somewhat effective non reducing his depression. [facility] Surgical History No pertinent past surgical history Family History Mother No problems noted. Father Hypertension Social History Housing: Apartment Alcohol intake: never Patient Tobacco Use Status: Never used Tobacco e-Cigarette/Vaping Use: Never Used Second Hand Smoke Exposure: No service: No Current occupational status: unemployed Cognitive needs: No Hearing needs: No Vision needs: No Questionnaire PHQ-9 Over the last 2 weeks, how often have you been bothered by any of the following problems? 1. Little interest or pleasure in doing things: not at all 2. Feeling down, depressed, or hopeless: not at all 3. Trouble falling or staying asleep, or sleeping too much: not at all 4. Feeling tired or having little energy: not at all 5. Poor appetite or overeating: not at all 6. Feeling bad about yourself - or that you are a failure or have let yourself or your family down: not at all 7. Trouble concentrating on things, such as reading the newspaper or watching television: not at all 8. Moving or speaking so slowly that other people could have noticed. Or the opposite - being so fidgety or restless that you have been moving around a lot more than usual: not at all 9. Thoughts that you would be better off or of hurting yourself in some way: not at all Total score: 0 Depression Screening Interpretation: Negative Depression Screening Done: Yes 42386 - PHQ-9 Billing: Yes Source: Developed by Drs. Houston Coles, Pau Leary, Murray Quick and colleagues, with an educational rios from [employer]. Thrive Questionnaire Date Thrive assessed: 03/27/24 I am a: Patient What is your living situation today?: I have a steady place to live Within the past 12 months, did the food you bought not last and you didn't have the money to get more?: Never true Within the past 12 months, did you worry whether your food would run out before you got money to buy more?: Never true Do you have trouble paying for medicines?: No Do you have trouble getting transportation to medical appointments?: No Do you have trouble paying your heating and electricity bill?: No Do you have trouble taking care of your child, family member or friend?: No Do you have trouble with day-to-day activities such as bathing, preparing meals, shopping, managing finances, etc.?: No Are you currently unemployed and looking for a job?: No Are you interested in more education?: No Please select the resources that you would like help with: None Currently or been in a relationship where the following occur: No concerns reported THRIVE Score: 0 AUDIT C Alcohol Use Questionnaire (AUDIT-C) 1. How often do you have a drink containing alcohol?: Never Total Score: 0 JAMES-7 AMB Questionnaire JAMES-7 Date JAMES - 7 assessed: 03/27/24 Feeling nervous, anxious, or on edge: 0 = Not at all Not being able to stop or control worryin = Not at all Worrying too much about different things: 0 = Not at all Trouble relaxin = Not at all Being so restless that it is hard to sit still: 0 = Not at all Becoming easily annoyed or irritable: 0 = Not at all Feeling afraid as if something awful might happen: 0 = Not at all Total JAMES-7 score (0-4 normal; 5-9 mild; 10-14 moderate; 15-21 severe): 0 Source: Developed by Drs. Houston Coles, Pau Leary, Murray Quick and colleagues, with an educational rios from [employer]. JAMES-7 Assessment Billing JAMES-7 Assessment Tool: JAMES-7 Assessment 40190 Review of Systems Const Denies headache(s) Eyes Denies loss of vision ENT Denies vertigo, Denies dizziness, Denies headache(s) and Denies sore throat Card Denies chest pain, Denies leg edema and Denies lightheadedness Resp Denies cough, Denies hemoptysis and Denies wheezing GI Denies abdominal pain, Denies melena, Denies constipation, Denies diarrhea and Denies vomiting Denies dysuria, Denies urinary frequency and Denies urinary urgency Musc Denies arthralgias, Denies joint swelling, Denies numbness and Denies tingling Neuro Denies Abnormal speech present, Denies behavioral changes, Denies vertigo, Denies dizziness, Denies headache(s), Denies loss of vision, Denies memory loss, Denies numbness and Denies tingling Psych Denies anxiety, Denies behavioral changes, Denies depression, Denies memory loss and Denies panic attacks Aguilar/Lymph Denies easy bleeding and Denies easy bruising Aller/Immun Denies wheezing Physical exam (Primary Care) Vital Signs: Last Vital Signs Pulse 88 03/27/24 11:14 BP 126/82 03/27/24 11:14 Pulse Ox 95 03/27/24 11:14 Oxygen Delivery Method Room Air 03/27/24 11:14 BMI result Body Mass Index 42.1 Tobacco/Smoking Status: Tobacco use Status Tobacco use date assessed 03/27/24 03/27/24 11:19 Patient Tobacco Use Status Never used Tobacco 03/27/24 11:19 e-Cigarette/Vaping Use Never Used 03/27/24 11:19 PHQ-9: PHQ-9 Score PHQ-9: Total score 0 03/27/24 11:30 Depression Screening Interpretation: Negative Thrive Assessment: Date of Thrive Assessment Date Thrive assessed 03/27/24 03/27/24 11:19 Currently or been in a relationship where the following occur: No concerns reported Const General: healthy appearing, no acute distress, alert and awake Nutritional Appearance: well nourished Orientation/consciousness: oriented to person, oriented to place and oriented to time HENMT Ears: TM's normal bilaterally General nose exam: Normal nasal mucous membranes and turbinates present Eyes Conjunctivae: conjunctivae normal Sclerae: sclerae normal Pupils: Equal, round and reactive pupils present Neck Neck: Yes no lymphadenopathy and Yes no JVD Thyroid: Thyroid normal Carotids: no bruits Resp Effort & Inspection: normal respiratory effort and not tachypneic Auscultation: no crackles, no rales, no rhonchi and no wheezes Cardio Rate: regular rate Rhythm: regular rhythm Heart sounds: no murmurs and normal S1 and S2 GI Palpation (GI): Soft to palpation, nontender, no hepatomegaly and no splenomegaly Auscultation: normal bowel sounds Skin General skin exam: no rashes or lesions noted and dry skin Neuro General: oriented to person, oriented to place and oriented to time Cranial nerves: Yes Equal, round and reactive pupils present Speech: No Abnormal speech present Gait exam (Neuro): Normal gait present Motor exam (neuro): no tremor noted Extrem Right upper extremity: full ROM Left upper extremity: full ROM Right lower extremity: full ROM; no edema Left lower extremity: full ROM; no edema Psych Mental Status: mental status grossly normal Speech and movement: Normal speech and movement present Affect: normal affect Attitude: cooperative Thought process: Normal thought process present Coding Level of Care Code Est Pt Level 4 (24295) Diagnoses Hypertriglyceridemia E78.1 BALWINDER (obstructive sleep apnea) G47.33 Hypothyroidism, unspecified type E03.9 Hypothyroidism type: unspecified Class 3 obesity E66.813 MDD (major depressive disorder), recurrent episode, moderate F33.1 Additional Codes PHQ-9 - 46349 - PHQ-9 Billing: Yes ([id number]) JAMES-7 Assessment Billing - JAMES-7 Assessment Tool: JAMES-7 Assessment 55436 ([id number]) Assessment & Plan Assessment & Plan (1) Hypertriglyceridemia: Code(s): E78.1 - Pure hyperglyceridemia Category: Medical Plan: Advised to get fasting lipids done. Has quite elevated triglycerides. Was started on fenofibrate to which he admits to taking on a daily basis. Goal triglycerides to be below 250. (2) BALWINDER (obstructive sleep apnea): Code(s): G47.33 - Obstructive sleep apnea (adult) (pediatric) Category: Medical Plan: Continues on CPAP machine on a nightly basis. Recent CPAP titration study showing severe obstructive sleep apnea. Has upcoming appointment pulmonology (3) Hypothyroid: Code(s): E03.9 - Hypothyroidism, unspecified Category: Medical Qualifiers: Hypothyroidism type: unspecified Qualified Code(s): E03.9 - Hypothyroidism, unspecified Plan: Most recent TSH testing has been stable. He continues with levothyroxine 25 mcg daily. (4) Class 3 obesity: Code(s): E66.813 - Obesity, class 3 Category: Medical Plan: Patient does understand his BMI is over 40. Unfortunately gained weight since last office visit. Will continue working being more physically active and adapting to better eating habits to reduce his weight. (5) MDD (major depressive disorder), recurrent episode, moderate: Code(s): F33.1 - Major depressive disorder, recurrent, moderate Category: Medical Plan: Continues to follow a mental health therapist and a psychiatrist whom manage his mental health medications. He is disabled due to his mental health Medications: Refilled levothyroxine 25 mcg PO DAILY 30 tabs 4RF 30 days E03.9 - Hypothyroidism, unspecified fenofibrate 54 mg PO DAILY 90 tabs 1RF 90 days E78.1 - Pure hyperglyceridemia
== END 2024-03-27 11:41 | disposition home or self-care (01) ==
PROVIDERS: PCP Physician Assistant; Visit Provider Physician Assistant
DX: E78.1 Pure hyperglyceridemia (principal); E66.813 Obesity, class 3; F33.1 Major depressive disorder, recurrent, moderate; Z68.41 Body mass index [BMI] 40.0-44.9, adult; G47.33 Obstructive sleep apnea (adult) (pediatric); E03.9 Hypothyroidism, unspecified

== ENCOUNTER → 2024-03-27 11:08 | Outpatient (BNVA) | payer OTHER, SELFPAY | PROVIDERS: PCP Physician Assistant; Visit Provider Physician Assistant | DX: E78.1 Pure hyperglyceridemia (principal); G47.33 Obstructive sleep apnea (adult) (pediatric); E03.9 Hypothyroidism, unspecified; E66.813 Obesity, class 3; F33.1 Major depressive disorder, recurrent, moderate | CPT/HCPCS: 96127; 99212 ==

== ENCOUNTER 2024-05-20 08:55 | Outpatient (AMB) | payer OTHER, SELFPAY ==
[2024-05-20 09:04] VITALS: BP 142/84; PULSE 67; O2SAT 97; BMI 41.0
--- NOTE | 2024-05-20 09:04 | MHC.OFFVIS ---
Vital Signs 05/20/24 09:04 Height 5 ft 11 in Weight 294 lb BMI 41.0 BP 142/84 H Blood Pressure Location Lt brachial Position Sitting Pulse 67 Pulse Source Doppler Pulse Oximetry (%) 97 Oxygen Delivery Method Room Air Intake Visit Reasons: Obstructive sleep apnea Customer Solutions Supervisor Required: Yes Customer Solutions Supervisor Name: Sherry Hanson Ekaterina Allergies No Known Allergies Allergy (Verified 03/27/24 11:26) HPI HPI Obstructive sleep apnea: Details: 28-year-old gentleman, nonsmoker, followed for severe obstructive sleep apnea now well controlled on CPAP therapy. [facility] Surgical History No pertinent past surgical history Family History Mother No problems noted. Father Hypertension Social History Housing: Apartment Alcohol intake: never Patient Tobacco Use Status: Never used Tobacco e-Cigarette/Vaping Use: Never Used Second Hand Smoke Exposure: No service: No Current occupational status: unemployed Cognitive needs: No Hearing needs: No Vision needs: No Review of Systems Const Denies daytime sleepiness, Denies excessive sweating, Denies fatigue, Denies fever(s), Denies lethargy, Denies malaise, Denies night sweats, Denies snoring and Denies weight loss Eyes Denies blurry vision and Denies itchy eyes ENT Denies nasal congestion, Denies post nasal drip, Denies sinus pain, Denies sinus pressure and Denies other ( Thrush) Card Denies chest pain, Denies pedal edema, Denies dyspnea, Denies orthopnea and Denies paroxysmal nocturnal dyspnea Resp Denies cough, Denies hemoptysis, Denies excessive phlegm production, Denies dyspnea, Denies snoring and Denies wheezing GI Denies abdominal pain and Denies heartburn Musc Denies myalgias, Denies arthralgias and Denies joint swelling Skin/Breast Denies rash Neuro Denies memory loss and Denies seizure-like activity Psych Denies abnormal sleep pattern, Denies anxiety and Denies memory loss Endo Denies excessive sweating, Denies fatigue and Denies heat intolerance Aguilar/Lymph Denies easy bruising Aller/Immun Denies itchy eyes, Denies seasonal rhinorrhea and Denies wheezing Physical Exam Vital Signs: Last Vital Signs Pulse 67 05/20/24 09:04 BP 142/84 H 05/20/24 09:04 Pulse Ox 97 05/20/24 09:04 Oxygen Delivery Method Room Air 05/20/24 09:04 BMI result Body Mass Index 41.0 Const General: no acute distress and alert Nutritional Appearance: obese Orientation/consciousness: Other orientation findings ( oriented) HEENT Head: Yes atraumatic Eyes General: appearance normal, both eyes and all related structures Sclerae: sclerae normal EOM: EOMs intact bilaterally Neck Neck: Yes supple Lymphatic: no lymphadenopathy noted Resp Effort & Inspection: normal respiratory effort and no use of accessory muscles Auscultation: clear to auscultation bilaterally Cardio Rate: regular rate Rhythm: regular rhythm Heart sounds: no gallops, no murmurs and no rubs Skin General skin exam: other ( warm) Extrem General: No clubbing, No cyanosis and No edema Assessment & Plan Assessment & Plan (1) BALWINDER (obstructive sleep apnea): Code(s): G47.33 - Obstructive sleep apnea (adult) (pediatric) Category: Medical Plan: Therapy and compliance report reviewed - patient is benefitting from and is compliant with noninvasive positive pressure ventilation treatment, using it greater than 70% of the time, more than 4 hours per night. Continue current CPAP therapy. Coding Level of Care Code Est Pt Level 3 (28372) Diagnoses BALWINDER (obstructive sleep apnea) G47.33
--- OUTSIDE RECORDS SUMMARY | 2024-05-20 09:17 | XMS_ITS | Clinical Summary ---
Author Organization [facility] ity Address [address] [place] [address] Care Team Providers Care Customer Retention Specialist Name Role Phone Unavailable Primary Care Provider Unavailabl e Social History Tobacco Use Types Packs/Day Years Used Date Smoking Tobacco: Never Assessed Sex and Gender Information Value Date Recorded Sex Assigned at Not on file Gender Identity Not on file Sexual Orientation Not on file Plan of Treatment Health Maintenance Due Date Last Done Comments DTaP,Tdap,and Td Vaccines (1 - Tdap) 2012 Hepatitis B Vaccines (1 of 3 - 19+ 3-dose series) 2012 COVID-19 Vaccine (2023-2 5 season) 2023 Influenza Vaccine (#1) 2023 HIB Vaccines Aged Out No longer eligi ble based on patient's age to complete this topic HPV Vaccines Aged Out No longer eligi ble based on patient's age to complete this topic Hepatitis A Vaccines Aged Out No long er eligible based on patient's age to complete this topic IPV Vaccines Aged Out No longer eligi ble based on patient's age to complete this topic MMR Vaccines Aged Out No longer eligi ble based on patient's age to complete this topic Meningococcal ACWY Vaccine Aged Out N o longer eligible based on patient's age to complete this topic Pneumococcal Vaccine: Pediat rics (0 to 5 Years) and At-Risk Patients (6 to 64 Years) Aged Out No longer eligible b ased on patient's age to complete this topic RSV Immunization Patients Un suzan 20 months Aged Out No longer eligible b ased on patient's age to complete this topic Varicella Vaccines Aged Out No longer eligible based on patient's age to complete this topic
== END 2024-05-20 09:21 | disposition home or self-care (01) ==
PROVIDERS: PCP Physician Assistant; Visit Provider Internal Medicine Pulmonary Disease
DX: G47.33 Obstructive sleep apnea (adult) (pediatric) (principal)
CPT/HCPCS: 99213

== ENCOUNTER → 2024-05-20 08:55 | Outpatient (BNVA) | payer OTHER, SELFPAY | PROVIDERS: PCP Physician Assistant; Visit Provider Internal Medicine Pulmonary Disease | DX: G47.33 Obstructive sleep apnea (adult) (pediatric) (principal); Z99.89 Dependence on other enabling machines and devices | CPT/HCPCS: 99212 ==

== ENCOUNTER 2024-09-23 13:22 | Outpatient (REF) | payer OTHER, SELFPAY ==
[2024-09-23 13:58] LABS: Hematocrit 47.1 % (42.0-52.0); Hemoglobin 15.3 g/dl (14.0-18.0); Mean Corpuscular HGB Conc 32.5 g/dl (31.0-36.0); Mean Corpuscular Hemoglobin 27.8 pg (27.0-33.0); Mean Corpuscular Volume 85.5 fL (80.0-98.0); Platelet Count 336 X10*3/uL (160-400); Red Blood Count 5.51 X10*6/uL (4.60-5.80); Red Cell Distribution Width 12.8 % (11.0-16.0); White Blood Count 7.8 X10*3/uL (4.8-10.8)
[2024-09-23 14:36] LABS: Cholesterol 273 mg/dL (<200); HDL Cholesterol 30 mg/dL (>40); Triglycerides 513 mg/dL (<150)
[2024-09-23 14:47] LABS: TSH reflex Free T4 3.11 uIU/mL (0.32-4.0)
--- OUTSIDE RECORDS SUMMARY | 2024-09-23 14:55 | XMS_ITS | Clinical Summary ---
Author Organization [facility] ity Address [address] [place] [address] Care Team Providers Care Group Sales Manager Name Role Phone Unavailable Primary Care Provider Unavailabl e Social History Tobacco Use Types Packs/Day Years Used Date Smoking Tobacco: Never Assessed Sex and Gender Information Value Date Recorded Sex Assigned at Not on file Legal Sex Male 5:40 PM EST Gender Identity Not on file Sexual Orientation Not on file Plan of Treatment Health Maintenance Due Date Last Done Comments DTaP,Tdap,and Td Vaccines (1 - Tdap) 2012 Hepatitis B Vaccines (1 of 3 - 19+ 3-dose series) 2012 COVID-19 Vaccine (2023-2 5 season) 2023 Influenza Vaccine (Season Ended) 2024 HIB Vaccines Aged Out No longer eligi [...] patient's age to complete this topic Meningococcal B Vaccine Aged Out No l onger eligible based on patient's age to complete [...]
== END 2024-09-23 13:23 | disposition home or self-care (01) ==
LOC: HO.LAB 13:22
PROVIDERS: PCP Physician Assistant; Visit Provider Physician Assistant
DX: E03.9 Hypothyroidism, unspecified (principal); E78.1 Pure hyperglyceridemia
CPT/HCPCS: 36415; 80061; 84443; 85027

== ENCOUNTER 2024-09-24 11:05 | Outpatient (AMB) | payer OTHER, SELFPAY ==
--- NOTE | 2024-09-24 11:33 | MHC.PC.OV ---
Vital Signs 09/24/24 11:35 Height 5 ft 11 in Weight 301 lb 2 oz BMI 42.0 BP 130/78 Blood Pressure Location Lt brachial Position Sitting Pulse 68 Pulse Source Pulse Oximeter Temp 97.5 F Temp Source Temporal Artery Scan Pulse Oximetry (%) 96 Oxygen Delivery Method Room Air Intake Visit Reasons: f/u hypothyroid,obesity, BALWINDER Intake Note: Patient is here to follow up on Hypothyroid, Obesity, BALWINDER. Material Stockkeeper Yard Required: Yes Material Stockkeeper Yard Language: Printer Apprentice Name: Shelby ([id number]) Information Interpreted: non-clinical & clinical Regulatory Leader: Not Required per policy Accompanied by: Self / Same As Patient Allergies No Known Allergies Allergy (Verified 09/24/24 11:54) Medication List - Last Reconciled 09/24/24 by Raghu Tan PA-C aripiprazole 5 mg PO DAILY buspirone 10 mg PO TID escitalopram oxalate 20 mg PO DAILY fenofibrate 54 mg PO DAILY 90 days levothyroxine 25 mcg PO DAILY 30 days melatonin 5 mg PO BEDTIME risperidone 1 mg PO BEDTIME sertraline (Zoloft) 50 mg PO DAILY Tobacco use date assessed: 09/24/24 Dental Screening Dental Screen Date: 09/24/24 Did you have a dental visit in the last 12 months?: No Did you have a dental problem in the last 6 months where you did not have access to dental care?: No Was dental information given to patient?: Patient declined HPI f/u hypothyroid,obesity, BALWINDER HPI Details Patient is a 28-year-old male Peruvian-speaking only here today for a a follow-up visit. Patient's past medical history significant for generalized anxiety disorder major depressive disorder, hyperlipidemia, obesity. Obstructive sleep apnea: Patient followed by [place] pul[facility]ology. Patient's CPAP titration study did show very severe obstructive sleep apnea, recommendation made to start air fit medium size mask with bilevel pressures 17/13 cm . Hyperlipidemia: Most recent lipid panel showing elevated total cholesterol and triglycerides. He admits he has not been taking fenofibrate as he has not gotten this from the pharmacy He is willing to restart fenofibrate 54 mg daily to help reduce his triglycerides. He does understand the risk of pancreatitis with elevated triglycerides. Obesity: Unfortunately gained weight since last office visit. He does understand his BMI is over 40 He reports he has not been to physically active Depression/ anxiety: Patient is now speaking with a mental health therapist. He continues on Zoloft and Abilify which has been somewhat effective non reducing his depression. Laboratory Tests 12/27/22 11/26/23 09/23/24 10:18 08:34 13:31 Triglycerides 408 H 415 H 513 H Cholesterol 262 H PFSH Surgical History No pertinent past surgical history Family History Mother No problems noted. Father Hypertension Social History Housing: Apartment Alcohol intake: never Patient Tobacco Use Status: Never used Tobacco e-Cigarette/Vaping Use: Never Used Second Hand Smoke Exposure: No service: No Current occupational status: unemployed Cognitive needs: No Hearing needs: No Vision needs: No Questionnaire PHQ-9 Over the last 2 weeks, how often have you been bothered by any of the following problems? 1. Little interest or pleasure in doing things: nearly every day 2. Feeling down, depressed, or hopeless: nearly every day 3. Trouble falling or staying asleep, or sleeping too much: nearly every day 4. Feeling tired or having little energy: nearly every day 5. Poor appetite or overeating: nearly every day 6. Feeling bad about yourself - or that you are a failure or have let yourself or your family down: nearly every day 7. Trouble concentrating on things, such as reading the newspaper or watching television: nearly every day 8. Moving or speaking so slowly that other people could have noticed. Or the opposite - being so fidgety or restless that you have been moving around a lot more than usual: nearly every day 9. Thoughts that you would be better off or of hurting yourself in some way: more than half the days Total score: 26 Depression Screening Interpretation: Positive Depression Screening Follow-up: Existing condition and In treatment Depression Screening Done: Yes 82737 - PHQ-9 Billing: Yes Source: Developed by Drs. Houston Coles, Pau Leary, Murray Quick and colleagues, with an educational rios from [employer]. Thrive Questionnaire Date Thrive assessed: 09/24/24 I am a: Patient What is your living situation today?: I choose not to answer this question Within the past 12 months, did the food you bought not last and you didn't have the money to get more?: I choose not to answer this question Within the past 12 months, did you worry whether your food would run out before you got money to buy more?: I choose not to answer this question Do you have trouble paying for medicines?: I choose not to answer this question Do you have trouble getting transportation to medical appointments?: I choose not to answer this question Do you have trouble paying your heating and electricity bill?: I choose not to answer this question Do you have trouble taking care of your child, family member or friend?: I choose not to answer this question Do you have trouble with day-to-day activities such as bathing, preparing meals, shopping, managing finances, etc.?: I choose not to answer this question Are you currently unemployed and looking for a job?: I choose not to answer this question Are you interested in more education?: I choose not to answer this question Please select the resources that you would like help with: None Currently or been in a relationship where the following occur: I choose not to answer THRIVE Score: 0 AUDIT C Alcohol Use Questionnaire (AUDIT-C) 1. How often do you have a drink containing alcohol?: Never Total Score: 0 JAMES-7 AMB Questionnaire JAMES-7 Date JAMES - 7 assessed: 09/24/24 Feeling nervous, anxious, or on edge: 3 = Nearly every day Not being able to stop or control worryin = Nearly every day Worrying too much about different things: 3 = Nearly every day Trouble relaxin = Nearly every day Being so restless that it is hard to sit still: 3 = Nearly every day Becoming easily annoyed or irritable: 3 = Nearly every day Feeling afraid as if something awful might happen: 3 = Nearly every day Total JAMES-7 score (0-4 normal; 5-9 mild; 10-14 moderate; 15-21 severe): 21 Source: Developed by Drs. Houston Coles, Pau Leary, Murray Quick and colleagues, with an educational rios from [employer]. JAMES-7 Assessment Billing JAMES-7 Assessment Tool: JAMES-7 Assessment 27822 Review of Systems Const Denies headache(s) Eyes Denies loss of vision ENT Denies vertigo, Denies dizziness, Denies headache(s) and Denies sore throat Card Denies chest pain, Denies leg edema and Denies lightheadedness Resp Denies cough, Denies hemoptysis and Denies wheezing GI Denies abdominal pain, Denies melena, Denies constipation, Denies diarrhea and Denies vomiting Denies dysuria, Denies urinary frequency and Denies urinary urgency Musc Denies arthralgias, Denies joint swelling, Denies numbness and Denies tingling Neuro Denies Abnormal speech present, Denies behavioral changes, Denies vertigo, Denies dizziness, Denies headache(s), Denies loss of vision, Denies memory loss, Denies numbness and Denies tingling Psych Denies anxiety, Denies behavioral changes, Denies depression, Denies memory loss and Denies panic attacks Aguilar/Lymph Denies easy bleeding and Denies easy bruising Aller/Immun Denies wheezing Physical exam (Primary Care) Vital Signs: Last Vital Signs Temp 97.5 F 09/24/24 11:35 Pulse 68 09/24/24 11:35 BP 130/78 09/24/24 11:35 Pulse Ox 96 09/24/24 11:35 Oxygen Delivery Method Room Air 09/24/24 11:35 BMI result Body Mass Index 42.0 BMI Assessment/Plan discussion: High BMI High, discussed plan: lifestyle, weight reduction, dietary and physical activity Tobacco/Smoking Status: Tobacco use Status Tobacco use date assessed 09/24/24 09/24/24 11:42 Patient Tobacco Use Status Never used Tobacco 09/24/24 11:42 e-Cigarette/Vaping Use Never Used 09/24/24 11:42 PHQ-9: PHQ-9 Score PHQ-9: Total score 26 09/24/24 11:42 Depression Screening Interpretation: Positive Depression Screening Follow-up: Existing condition and In treatment Thrive Assessment: Date of Thrive Assessment Date Thrive assessed 09/24/24 09/24/24 11:42 Currently or been in a relationship where the following occur: I choose not to answer Const Other: Morbidly obese General: healthy appearing, no acute distress, alert and awake Nutritional Appearance: well nourished Orientation/consciousness: oriented to person, oriented to place and oriented to time HENMT Ears: TM's normal bilaterally General nose exam: Normal nasal mucous membranes and turbinates present Eyes Conjunctivae: conjunctivae normal Sclerae: sclerae normal Pupils: Equal, round and reactive pupils present Neck Neck: Yes no lymphadenopathy and Yes no JVD Thyroid: Thyroid normal Carotids: no bruits Resp Effort & Inspection: normal respiratory effort and not tachypneic Auscultation: no crackles, no rales, no rhonchi and no wheezes Cardio Rate: regular rate Rhythm: regular rhythm Heart sounds: no murmurs and normal S1 and S2 GI Palpation (GI): Soft to palpation, nontender, no hepatomegaly and no splenomegaly Auscultation: normal bowel sounds Skin General skin exam: no rashes or lesions noted and dry skin Neuro General: oriented to person, oriented to place and oriented to time Cranial nerves: Yes Equal, round and reactive pupils present Speech: No Abnormal speech present Gait exam (Neuro): Normal gait present Motor exam (neuro): no tremor noted Extrem Right upper extremity: full ROM Left upper extremity: full ROM Right lower extremity: full ROM; no edema Left lower extremity: full ROM; no edema Psych Mental Status: mental status grossly normal Speech and movement: Normal speech and movement present Affect: normal affect Attitude: cooperative Thought process: Normal thought process present Coding Level of Care Code Est Pt Level 4 (62956) Diagnoses Hypertriglyceridemia E78.1 BALWINDER (obstructive sleep apnea) G47.33 Hypothyroidism, unspecified type E03.9 Hypothyroidism type: unspecified Class 3 obesity E66.813 MDD (major depressive disorder), recurrent episode, moderate F33.1 JAMES (generalized anxiety disorder) F41.1 Additional Codes PHQ-9 - 25219 - PHQ-9 Billing: Yes ([id number]) JAMES-7 Assessment Billing - JAMES-7 Assessment Tool: JAMES-7 Assessment 89336 ([id number]) Assessment & Plan Assessment & Plan (1) Hypertriglyceridemia: Code(s): E78.1 - Pure hyperglyceridemia Category: Medical Plan: Advised to get fasting lipids done. Has quite elevated triglycerides. He has not been taking fenofibrate for some unclear reason. Will try to send him back to the pharmacy to start this medication to reduce his triglycerides. He does understand the risk of pancreatitis with having his triglycerides in his range. Will also try to set patient up with a dietitian to help work on a diet plan on reducing cholesterol in his daily diet. Goal triglycerides to be below 250. (2) BALWINDER (obstructive sleep apnea): Code(s): G47.33 - Obstructive sleep apnea (adult) (pediatric) Category: Medical Plan: Continues on CPAP machine on a nightly basis. He is followed by [place] pul[facility].. Recent CPAP titration study showing severe obstructive sleep apnea. (3) Hypothyroid: Code(s): E03.9 - Hypothyroidism, unspecified Category: Medical Qualifiers: Hypothyroidism type: unspecified Qualified Code(s): E03.9 - Hypothyroidism, unspecified Plan: Most recent TSH testing has been stable. He continues with levothyroxine 25 mcg daily. (4) Class 3 obesity: Code(s): E66.813 - Obesity, class 3 Category: Medical Plan: Patient does understand his BMI is over 40. Unfortunately gained weight since last office visit. Will continue working being more physically active and adapting to better eating habits to reduce his weight. (5) MDD (major depressive disorder), recurrent episode, moderate: Code(s): F33.1 - Major depressive disorder, recurrent, moderate Category: Medical Plan: Patient's PHQ-9 score positive for major depressive disorder which has been existing condition for him. He is speaking with a mental health therapist and a psychiatrist who is managing his mental health medications. (6) JAMES (generalized anxiety disorder): Code(s): F41.1 - Generalized anxiety disorder Category: Medical Plan: Patient's JAMES-7 score positive for anxiety which has been existing condition for him. Again speaking with a psychiatrist and a mental health therapist Orders: Orders TSH reflex Free T4 Today E03.9 - Hypothyroidism, unspecified Lipid Panel Today E78.1 - Pure hyperglyceridemia Complete Blood Count no Diff Today E78.1 - Pure hyperglyceridemia Comprehensive [facility]. Panel Fast Today E78.1 - Pure hyperglyceridemia Referrals Nutrition/Dietitian Referral E78.1 - Pure hyperglyceridemia Medications: Refilled levothyroxine 25 mcg PO DAILY 30 days 30 tabs 4RF E03.9 - Hypothyroidism, unspecified fenofibrate 54 mg PO DAILY 90 days 90 tabs 1RF E78.1 - Pure hyperglyceridemia Patient Instructions: Goal: Triglycerides to be below 250 Barriers: Adherence to physical activity and healthy eating habits
[2024-09-24 11:35] VITALS: BP 130/78; PULSE 68; TEMP 36.4; O2SAT 96; BMI 42.0
--- OUTSIDE RECORDS SUMMARY | 2024-09-24 12:14 | XMS_ITS | Clinical Summary ---
Author Organization [employer] [facility] ity Address [address] [place] [address] Care Team Providers Care Certified Genetic Counselor Name Role Phone Unavailable Primary Care Provider [...]
== END 2024-09-24 12:09 | disposition home or self-care (01) ==
LOC: HO.HMCH 11:16
PROVIDERS: PCP Physician Assistant; Visit Provider Physician Assistant
DX: E78.1 Pure hyperglyceridemia (principal); F33.1 Major depressive disorder, recurrent, moderate; E66.813 Obesity, class 3; Z68.41 Body mass index [BMI] 40.0-44.9, adult; G47.33 Obstructive sleep apnea (adult) (pediatric); E03.9 Hypothyroidism, unspecified; F41.1 Generalized anxiety disorder

== ENCOUNTER → 2024-09-24 11:05 | Outpatient (BNVA) | payer OTHER, SELFPAY | PROVIDERS: PCP Physician Assistant; Visit Provider Physician Assistant | DX: G47.33 Obstructive sleep apnea (adult) (pediatric) (principal); E03.9 Hypothyroidism, unspecified; E78.5 Hyperlipidemia, unspecified; E78.1 Pure hyperglyceridemia; E66.813 Obesity, class 3; F33.1 Major depressive disorder, recurrent, moderate; F41.1 Generalized anxiety disorder; Z68.42 Body mass index [BMI] 45.0-49.9, adult; Z99.89 Dependence on other enabling machines and devices | CPT/HCPCS: 96127; 99212 ==

== ENCOUNTER 2024-12-09 15:16 | Outpatient (AMB) | payer OTHER, SELFPAY ==
--- NOTE | 2024-12-09 15:20 | A.OFFPC_ITS ---
Vital Signs 12/09/24 15:21 Height 5 ft 11 in Weight 297 lb BMI 41.4 BP 140/80 H Blood Pressure Location Lt brachial Position Sitting Pulse 75 Pulse Source Pulse Oximeter Temp 97.3 F Temp Source Temporal Artery Scan Pulse Oximetry (%) 96 Oxygen Delivery Method Room Air Intake Visit Reasons: PE R/S from 11/27 Intake Note: Patient is here today for a physical. Seal Delivery Vehicle Team Technician Required: Yes Seal Delivery Vehicle Team Technician Language: Customer Counter Associate Name: Richard( [id number]) Information Interpreted: non-clinical & clinical Countersinker Balance Screw Hole: Present Accompanied by: Spouse Allergies No Known Allergies Allergy (Verified 12/09/24 16:00) Medication List - Last Reconciled 12/09/24 by Raghu Tan PA-C aripiprazole 5 mg PO DAILY buspirone 10 mg PO TID escitalopram oxalate 20 mg PO DAILY gemfibrozil 600 mg PO BID 90 days levothyroxine 25 mcg PO DAILY 90 days melatonin 5 mg PO BEDTIME risperidone 1 mg PO BEDTIME sertraline (Zoloft) 50 mg PO DAILY Tobacco use date assessed: 12/09/24 Dental Screening Dental Screen Date: 09/24/24 HPI PE R/S from 11/27 HPI Details Patient is a 28-year-old male [place]ayan-speaking only here today for a routine annual physical Patient's past medical history significant for generalized anxiety disorder major depressive disorder, hyperlipidemia, obesity. Obstructive sleep apnea: Patient followed by [facility]. Patient's CPAP titration study did show very severe obstructive sleep apnea, recommendation made to start air fit medium size mask with bilevel pressures 17/13 cm . Hyperlipidemia: Most recent lipid panel showing elevated total cholesterol and triglycerides. We have transitioned his hyper triglyceride medication to gemfibrozil 600 b.i.d.. Unfortunately has only been taking his medication once a day. He promises to start taking gemfibrozil twice a day to reduce his triglycerides. Again advised on low triglyceride diet. .. HTN/ Elevated blood pressure: Noted elevated blood pressure reading today in office. Has had reports of head pain in some slight vision blurriness during the head pain. This symptoms may be due to his blood pressure readings being elevated. He is willing to start low-dose antihypertensive Class 3 Obesity: He does understand his BMI is over 40 He reports he has not been to physically active Depression/ anxiety: Patient is now speaking with a mental health therapist. He continues on Zoloft and Abilify which has been somewhat effective non reducing his depression. Vaccine: UTD with Tdap and COVID. Not interested in flu vaccine. Will consider pneumonia vaccine if has obstructive sleep apnea Laboratory Tests 11/26/23 09/23/24 08:34 13:31 RBC 5.51 Triglycerides 415 H 513 H Cholesterol 273 H TSH 3.11 PFSH Surgical History No pertinent past surgical history Family History Mother No problems noted. Father Hypertension Social History Housing: Apartment Alcohol intake: never Patient Tobacco Use Status: Never used Tobacco e-Cigarette/Vaping Use: Never Used Second Hand Smoke Exposure: No service: No Current occupational status: unemployed Cognitive needs: No Hearing needs: No Vision needs: No Questionnaire Thrive Questionnaire Date Thrive assessed: 09/24/24 I am a: Patient What is your living situation today?: I choose not to answer this question Within the past 12 months, did the food you bought not last and you didn't have the money to get more?: I choose not to answer this question Within the past 12 months, did you worry whether your food would run out before you got money to buy more?: I choose not to answer this question Do you have trouble paying for medicines?: I choose not to answer this question Do you have trouble getting transportation to medical appointments?: I choose not to answer this question Do you have trouble paying your heating and electricity bill?: I choose not to answer this question Do you have trouble taking care of your child, family member or friend?: I choose not to answer this question Do you have trouble with day-to-day activities such as bathing, preparing meals, shopping, managing finances, etc.?: I choose not to answer this question Are you currently unemployed and looking for a job?: I choose not to answer this question Are you interested in more education?: I choose not to answer this question Please select the resources that you would like help with: None Currently or been in a relationship where the following occur: I choose not to answer THRIVE Score: 0 JAMES-7 AMB Questionnaire JAMES-7 Date JAMES - 7 assessed: 09/24/24 Source: Developed by Drs. Houston Coles, Pau Leary, Murray Quick and colleagues, with an educational rios from [employer]. Review of Systems Const Denies body aches, Denies chills, Denies excessive sweating, Denies fatigue, Denies fever(s) and Denies headache(s) Eyes Denies blurry vision ENT Denies dysphagia, Denies vertigo, Denies dizziness, Denies headache(s), Denies hearing loss and Denies tinnitus Card Denies chest pain, Denies chest pain with activity, Denies syncope, Denies irregular heart rhythm and Denies dyspnea Resp Denies chest congestion, Denies cough, Denies hemoptysis, Denies dyspnea and Denies wheezing GI Denies abdominal pain, Denies melena, Denies hematochezia, Denies coffee ground emesis, Denies dysphagia, Denies diarrhea, Denies nausea and Denies vomiting Denies difficulty urinating, Denies dysuria, Denies urinary frequency, Denies urinary hesitancy and Denies urinary urgency Musc Denies arthralgias, Denies limited range of motion, Denies muscle cramps and Denies muscle weakness Skin/Breast Denies rash and Denies skin ulcer Neuro Denies Abnormal speech present, Denies confusion, Denies vertigo, Denies dizziness, Denies syncope, Denies headache(s), Denies memory loss and Denies seizure-like activity Psych Denies anxiety, Denies confusion, Denies depression, Denies memory loss, Denies panic attacks and Denies paranoia Endo Denies excessive sweating, Denies fatigue, Denies flushing, Denies polydipsia and Denies polyuria Aller/Immun Denies wheezing Physical exam (Primary Care) Vital Signs: Last Vital Signs Temp 97.3 F 12/09/24 15:21 Pulse 75 12/09/24 15:21 BP 140/80 H 12/09/24 15:21 Pulse Ox 96 12/09/24 15:21 Oxygen Delivery Method Room Air 12/09/24 15:21 Care Plan Goal for BP management: Will start antihypertensive medication-amlodipine Next steps: Start monitoring blood pressure at home with goal blood pressure to be below 140/90 BMI result Body Mass Index 41.4 BMI Assessment/Plan discussion: High BMI High, discussed plan: lifestyle, weight reduction, dietary and physical activity Tobacco/Smoking Status: Tobacco use Status Tobacco use date assessed 12/09/24 12/09/24 15:28 Patient Tobacco Use Status Never used Tobacco 12/09/24 15:28 e-Cigarette/Vaping Use Never Used 12/09/24 15:28 Thrive Assessment: Date of Thrive Assessment Date Thrive assessed 09/24/24 12/09/24 15:28 Currently or been in a relationship where the following occur: I choose not to answer Const General: cooperative, comfortable, no acute distress, alert and awake; No confusion Orientation/consciousness: oriented to person, oriented to place, patient oriented x3 and No confusion HENMT Head: Yes normocephalic Ears: external ears normal and TM's normal bilaterally Face and sinus: No sinus tenderness Mouth: Normal oral and palatal mucosa present and tongue normal Teeth and gingiva: dentition normal and gingiva normal Throat: Yes posterior oropharynx normal, Yes tonsils normal and Yes uvula midline Eyes Conjunctivae: conjunctivae normal Sclerae: sclerae normal Pupils: Equal, round and reactive pupils present EOM: EOMs intact bilaterally Direct Ophthalmoscopy: No no photophobia Neck Neck: Yes no lymphadenopathy, No tender and Yes no JVD Thyroid: Thyroid normal Carotids: no bruits Chest Chest palpation & inspection: no tenderness Resp Effort & Inspection: normal respiratory effort, no audible wheezes, not labored and no stridor Auscultation: no crackles, no rales, no rhonchi and no wheezes Cardio Jugular venous distension: no JVD Rate: regular rate, not bradycardic and not tachycardic Rhythm: regular rhythm Bruits: no carotid bruits Peripheral pulses: Peripheral pulses 2+ throughout GI Inspection: Yes normal to inspection, No abdominal wall ecchymosis and No visible herniation Palpation (GI): Soft to palpation, nontender, no guarding, not rigid and No hepatosplenomegaly present Auscultation: normoactive bowel sounds General: Yes no CVA tenderness Back/Spine/Pelvis Back: no CVA tenderness and No back tenderness Cervical Spine: cervical ROM normal Thoracic/Lumbar Spine: thoracic and lumbar spine normal to inspection, straight leg raise negative bilaterally, No thoraco-lumbar ROM limited and No lumbar spinal tenderness Skin Lesions: no lesions Rashes: no rashes Wounds: no wounds Neuro General: oriented to person, oriented to place, patient oriented x3, CN's II-XI intact bilaterally and No confusion Cranial nerves: Yes Equal, round and reactive pupils present and Yes Normal accommodation reflex present Cognition (Neuro): normal cognition Speech: No Abnormal speech present Gait exam (Neuro): Normal gait present Motor exam (neuro): 5/5 motor strength present throughout Extrem Right upper extremity: full ROM; no cyanosis Left upper extremity: full ROM; no cyanosis Right lower extremity: no edema Left lower extremity: no edema Psych Appearance: grossly normal Mental Status: mental status grossly normal Affect: normal affect Attitude: cooperative Thought process: Normal thought process present Coding Level of Care Code Est Pt Prev Care [id number]([id number]) Diagnoses Annual physical exam Z00.00 BALWINDER (obstructive sleep apnea) G47.33 Hypertriglyceridemia E78.1 Hypothyroidism, unspecified type E03.9 Hypothyroidism type: unspecified Class 3 obesity E66.813 Primary hypertension I10 Hypertension type: primary hypertension Assessment & Plan Assessment & Plan (1) Annual physical exam: Code(s): Z00.00 - Encounter for general adult medical examination without abnormal findings Category: Medical Plan: As per HPI (2) BALWINDER (obstructive sleep apnea): Code(s): G47.33 - Obstructive sleep apnea (adult) (pediatric) Category: Medical Plan: Continues on CPAP machine on a nightly basis. He is followed by [facility].. Recent CPAP titration study showing severe obstructive sleep apnea. (3) Hypertriglyceridemia: Code(s): E78.1 - Pure hyperglyceridemia Category: Medical Plan: Advised to get fasting lipids done. Has quite elevated triglycerides >500. We will increase his gemfibrozil to 600 b.i.d. to help reduce his triglycerides. He does understand the risk of pancreatitis with having his triglycerides in his range. Will also try to set patient up with a dietitian to help work on a diet plan on reducing cholesterol in his daily diet. Goal triglycerides to be below 250. (4) Hypothyroid: Code(s): E03.9 - Hypothyroidism, unspecified Category: Medical Qualifiers: Hypothyroidism type: unspecified Qualified Code(s): E03.9 - Hypothyroidism, unspecified Plan: Has not been taking levothyroxine over the last few weeks as he has not received from the pharmacy. Will restart levothyroxine 25. Most recent TSH testing has been stable. He continues with levothyroxine 25 mcg daily. (5) Class 3 obesity: Code(s): E66.813 - Obesity, class 3 Category: Medical Plan: Patient does understand his BMI is over 40. Unfortunately gained weight since last office visit. Will continue working being more physically active and adapting to better eating habits to reduce his weight. (6) HTN (hypertension): Code(s): I10 - Essential (primary) hypertension Category: Medical Qualifiers: Hypertension type: primary hypertension Qualified Code(s): I10 - Essential (primary) hypertension Plan: Patient's blood pressure elevated today in office. He is willing to start antihypertensive medication thus will start amlodipine 5 mg with goal blood pressure to be below 140/90 Medications: New amlodipine 5 mg PO DAILY 90 tabs 1RF 90 days I10 - Essential (primary) hypertension Changed From levothyroxine 25 mcg PO DAILY 30 days 30 tabs 4RF E03.9 - Hypothyroidism, unspecified To levothyroxine 25 mcg PO DAILY 90 tabs 1RF 90 days E03.9 - Hypothyroidism, unspecified Refilled gemfibrozil 600 mg PO BID 180 tabs 1RF 90 days E78.1 - Pure hyperglyceridemia
[2024-12-09 15:21] VITALS: BP 140/80; PULSE 75; TEMP 36.3; O2SAT 96; BMI 41.4
--- OUTSIDE RECORDS SUMMARY | 2024-12-09 16:33 | XMS_ITS | Clinical Summary ---
Author Organization [facility] ity Address [address] [place] [address] Care Team Providers Care Deli Clerk Name Role Phone Unavailable Primary Care Provider [...] 2012 COVID-19 Vaccine (2023-2 5 season) 2023 Depression Screening 04/23/2024 Influenza Vaccine (#1) 2024 HIB Vaccines Aged Out No longer [...] 5 Years) and At-Risk Patients (6 to 49 Years) Aged Out No longer eligible b ased on patient's age to complete this topic RSV Immunization Patients Un suzan 20 months Aged Out No longer eligible b ased on patient's age to complete this topic Varicella Vaccines Aged Out No longer eligible based on patient's age to complete this topic
== END 2024-12-09 16:19 | disposition home or self-care (01) ==
LOC: HO.HMCH 15:17
PROVIDERS: PCP Physician Assistant; Visit Provider Physician Assistant
DX: Z00.00 Encounter for general adult medical examination without abnormal findings (principal); G47.33 Obstructive sleep apnea (adult) (pediatric); E66.813 Obesity, class 3; Z68.41 Body mass index [BMI] 40.0-44.9, adult; E78.1 Pure hyperglyceridemia; E03.9 Hypothyroidism, unspecified; I10 Essential (primary) hypertension

== ENCOUNTER → 2024-12-09 15:16 | Outpatient (BNVA) | payer OTHER, SELFPAY | PROVIDERS: PCP Physician Assistant; Visit Provider Physician Assistant | DX: Z00.00 Encounter for general adult medical examination without abnormal findings (principal); G47.33 Obstructive sleep apnea (adult) (pediatric); E78.1 Pure hyperglyceridemia; F41.1 Generalized anxiety disorder; E78.5 Hyperlipidemia, unspecified; I10 Essential (primary) hypertension; E66.813 Obesity, class 3; F32.A Depression, unspecified; E03.9 Hypothyroidism, unspecified; Z68.41 Body mass index [BMI] 40.0-44.9, adult; Z99.89 Dependence on other enabling machines and devices | CPT/HCPCS: 99395 ==

== ENCOUNTER 2024-12-25 11:35 | Outpatient (REF) | payer OTHER, SELFPAY ==
[2024-12-25 12:31] LABS: Hematocrit 46.7 % (42.0-52.0); Hemoglobin 15.3 g/dl (14.0-18.0); Mean Corpuscular HGB Conc 32.8 g/dl (31.0-36.0); Mean Corpuscular Hemoglobin 27.6 pg (27.0-33.0); Mean Corpuscular Volume 84.1 fL (80.0-98.0); NRBC Abs Auto 0.000 X10*3/uL (0.0-0.012); NRBC Pct Auto 0.0 /100WBC (0.0-0.2); Platelet Count 334 X10*3/uL (160-400); Red Blood Count 5.55 X10*6/uL (4.60-5.80); White Blood Count 7.2 X10*3/uL (4.8-10.8)
[2024-12-25 13:08] LABS: Alanine Aminotransferase 47 U/L (0-40); Albumin Level 5.1 g/dL (3.5-5.0); Alkaline Phosphatase 100 U/L (39-117); Anion Gap 18 (12-20); Aspartate Amino Transferase 48 U/L (5-37); Blood Urea Nitrogen 11 mg/dL (9-16); Calcium 10.1 mg/dL (8.4-10.2); Carbon Dioxide 23 mmol/L (22-29); Chloride 103 mmol/L (96-108); Cholesterol 298 mg/dL (<200); Estimated Glomerular Filt Rate > 60; HDL Cholesterol 28 mg/dL (>40); Potassium 4.0 mmol/L (3.3-5.1); Sodium 140 mmol/L (135-145); Total Protein 8.8 g/dL (6.5-8.0); Triglycerides 606 mg/dL (<150)
--- OUTSIDE RECORDS SUMMARY | 2024-12-25 13:16 | XMS_ITS | Clinical Summary ---
Author Organization [employer] [facility] ity Address [address] [place] [address] Care Team Providers Care Milling/Polishing Operator Name Role Phone Unavailable Primary Care Provider [...]
[2024-12-25 14:11] LABS: Free T4 (Free Thyroxine) 0.85 ng/dL (0.71-1.85)
== END 2024-12-25 11:36 | disposition home or self-care (01) ==
LOC: HO.LAB 11:35
PROVIDERS: Visit Provider Physician Assistant
DX: E03.9 Hypothyroidism, unspecified (principal); E78.1 Pure hyperglyceridemia
CPT/HCPCS: 36415; 80053; 80061; 84439; 84443; 85027

== ENCOUNTER 2025-03-16 15:05 | Outpatient (AMB) | payer OTHER, SELFPAY ==
[2025-03-16 15:55] VITALS: BP 124/80; PULSE 85; O2SAT 96; BMI 42.2
--- NOTE | 2025-03-16 15:55 | MHC.PC.OV ---
Vital Signs 03/16/25 15:55 Height 5 ft 11 in Weight 302 lb 6 oz BMI 42.2 BP 124/80 Blood Pressure Location Lt brachial Position Sitting Pulse 85 Pulse Source Pulse Oximeter Pulse Oximetry (%) 96 Oxygen Delivery Method Room Air Intake Visit Reasons: discuss weight loss injection Shellfish Processing Machine Tender Required: Yes Shellfish Processing Machine Tender Language: Wax Coating Machine Tender Name: ID#[id number] Accompanied by: Self / Same As Patient Allergies No Known Allergies Allergy (Verified 03/17/25 07:32) Medication List - Last Reconciled 03/17/25 by Raghu Tan PA-C amlodipine 5 mg PO DAILY 90 days aripiprazole 5 mg PO DAILY buspirone 10 mg PO TID escitalopram oxalate 20 mg PO DAILY gemfibrozil 600 mg PO BID 90 days levothyroxine 25 mcg PO DAILY 90 days melatonin 5 mg PO BEDTIME risperidone 1 mg PO BEDTIME sertraline (Zoloft) 50 mg PO DAILY tirzepatide (weight loss) (Zepbound) 2.5 mg (0.5 mL) subcut QWEEK 4 weeks Tobacco use date assessed: 03/16/25 Dental Screening Dental Screen Date: 03/16/25 Did you have a dental visit in the last 12 months?: No Did you have a dental problem in the last 6 months where you did not have access to dental care?: No Was dental information given to patient?: No HPI discuss weight loss injection HPI Details Patient is a 28-year-old male [place]er-speaking only here today for a followup.. Patient's past medical history significant for generalized anxiety disorder major depressive disorder, hyperlipidemia, obesity. Obstructive sleep apnea: Patient followed by [facility]. Patient's CPAP titration study did show very severe obstructive sleep apnea, he now continues on CPAP on a nightly basis and followed by pulmonology. -- >Patient is interested in weight reduction to help his obstructive sleep apnea has will start a GLP 1 Zepbound. . Hyperlipidemia: Most recent lipid panel showing elevated total cholesterol and triglycerides. We have transitioned his hyper triglyceride medication to gemfibrozil 600 b.i.d.. Unfortunately has only been taking his medication once a day. He promises to start taking gemfibrozil twice a day to reduce his triglycerides. Again advised on low triglyceride diet. .. HTN: Patient's blood pressure today in office acceptable. Patient continues on amlodipine 5 mg with good effect.. Has had reports of head pain in some slight vision blurriness during the head pain. This symptoms may be due to his blood pressure readings being elevated. He is willing to start low-dose antihypertensive Class 3 Obesity: He does understand his BMI is over 40. He reports he has not been to physically active . PLAN: Will trial a GLP 1 to help reduce weight. Depression/ anxiety: Patient continues to follow a psychiatrist who manages his mental health medications. He speaks with a mental health therapist quite regularly He is applying for disability due to his mental health as he has not been able to do any meaningful work due to his mental health.. . He continues on Zoloft and Abilify which has been somewhat effective non reducing his depression. [facility] Surgical History No pertinent past surgical history Family History Mother No problems noted. Father Hypertension Social History Housing: Apartment Alcohol intake: never Patient Tobacco Use Status: Never used Tobacco e-Cigarette/Vaping Use: Never Used Second Hand Smoke Exposure: No service: No Current occupational status: unemployed Cognitive needs: No Hearing needs: No Vision needs: No Questionnaire PHQ-9 Over the last 2 weeks, how often have you been bothered by any of the following problems? 1. Little interest or pleasure in doing things: nearly every day 2. Feeling down, depressed, or hopeless: nearly every day 3. Trouble falling or staying asleep, or sleeping too much: nearly every day 4. Feeling tired or having little energy: nearly every day 5. Poor appetite or overeating: nearly every day 6. Feeling bad about yourself - or that you are a failure or have let yourself or your family down: nearly every day 7. Trouble concentrating on things, such as reading the newspaper or watching television: nearly every day 8. Moving or speaking so slowly that other people could have noticed. Or the opposite - being so fidgety or restless that you have been moving around a lot more than usual: nearly every day 9. Thoughts that you would be better off or of hurting yourself in some way: more than half the days Total score: 26 Depression Screening Interpretation: Positive Depression Screening Follow-up: Existing condition and In treatment Depression Screening Done: Yes 32855 - PHQ-9 Billing: Yes Source: Developed by Drs. Houston Coles, Pau Leary, Murray Quick and colleagues, with an educational rios from [employer]. Thrive Questionnaire Date Thrive assessed: 03/16/25 I am a: Patient What is your living situation today?: I choose not to answer this question Within the past 12 months, did the food you bought not last and you didn't have the money to get more?: I choose not to answer this question Within the past 12 months, did you worry whether your food would run out before you got money to buy more?: I choose not to answer this question Do you have trouble paying for medicines?: I choose not to answer this question Do you have trouble getting transportation to medical appointments?: I choose not to answer this question Do you have trouble paying your heating and electricity bill?: I choose not to answer this question Do you have trouble taking care of your child, family member or friend?: I choose not to answer this question Do you have trouble with day-to-day activities such as bathing, preparing meals, shopping, managing finances, etc.?: I choose not to answer this question Are you currently unemployed and looking for a job?: I choose not to answer this question Are you interested in more education?: I choose not to answer this question Please select the resources that you would like help with: None Currently or been in a relationship where the following occur: I choose not to answer THRIVE Score: 0 AUDIT C Alcohol Use Questionnaire (AUDIT-C) 1. How often do you have a drink containing alcohol?: Never 3. How often do you have six or more drinks on one occasion?: Never Total Score: 0 JAMES-7 AMB Questionnaire JAMES-7 Date JAMES - 7 assessed: 03/16/25 Feeling nervous, anxious, or on edge: 0 = Not at all Not being able to stop or control worryin = Not at all Worrying too much about different things: 0 = Not at all Trouble relaxin = Not at all Being so restless that it is hard to sit still: 0 = Not at all Becoming easily annoyed or irritable: 0 = Not at all Feeling afraid as if something awful might happen: 0 = Not at all Total JAMES-7 score (0-4 normal; 5-9 mild; 10-14 moderate; 15-21 severe): 0 Source: Developed by Drs. Houston Coles, Pau Leary, Murray Quick and colleagues, with an educational rios from [employer]. JAMES-7 Assessment Billing JAMES-7 Assessment Tool: JAMES-7 Assessment 10747 Review of Systems Const Denies headache(s) Eyes Denies loss of vision ENT Denies vertigo, Denies dizziness, Denies headache(s) and Denies sore throat Card Denies chest pain, Denies leg edema and Denies lightheadedness Resp Denies cough, Denies hemoptysis and Denies wheezing GI Denies abdominal pain, Denies melena, Denies constipation, Denies diarrhea and Denies vomiting Denies dysuria, Denies urinary frequency and Denies urinary urgency Musc Denies arthralgias, Denies joint swelling, Denies numbness and Denies tingling Neuro Denies Abnormal speech present, Denies behavioral changes, Denies vertigo, Denies dizziness, Denies headache(s), Denies loss of vision, Denies memory loss, Denies numbness and Denies tingling Psych Denies anxiety, Denies behavioral changes, Denies depression, Denies memory loss and Denies panic attacks Aguilar/Lymph Denies easy bleeding and Denies easy bruising Aller/Immun Denies wheezing Physical exam (Primary Care) Vital Signs: Last Vital Signs Pulse 85 03/16/25 15:55 BP 124/80 03/16/25 15:55 Pulse Ox 96 03/16/25 15:55 Oxygen Delivery Method Room Air 03/16/25 15:55 BMI result Body Mass Index 42.2 BMI Assessment/Plan discussion: High BMI High, discussed plan: lifestyle, weight reduction, dietary and physical activity Tobacco/Smoking Status: Tobacco use Status Tobacco use date assessed 03/16/25 03/16/25 16:01 Patient Tobacco Use Status Never used Tobacco 03/16/25 16:01 e-Cigarette/Vaping Use Never Used 03/16/25 16:01 PHQ-9: PHQ-9 Score PHQ-9: Total score 26 03/16/25 16:07 Depression Screening Interpretation: Positive Depression Screening Follow-up: Existing condition and In treatment Thrive Assessment: Date of Thrive Assessment Date Thrive assessed 03/16/25 03/16/25 16:01 Currently or been in a relationship where the following occur: I choose not to answer Const Other: OBESE General: no acute distress, alert and awake Nutritional Appearance: well nourished Orientation/consciousness: oriented to person, oriented to place and oriented to time HENMT Ears: TM's normal bilaterally General nose exam: Normal nasal mucous membranes and turbinates present Eyes Conjunctivae: conjunctivae normal Sclerae: sclerae normal Pupils: Equal, round and reactive pupils present Neck Neck: Yes no lymphadenopathy and Yes no JVD Thyroid: Thyroid normal Carotids: no bruits Resp Effort & Inspection: normal respiratory effort and not tachypneic Auscultation: no crackles, no rales, no rhonchi and no wheezes Cardio Rate: regular rate Rhythm: regular rhythm Heart sounds: no murmurs and normal S1 and S2 GI Palpation (GI): Soft to palpation, nontender, no hepatomegaly and no splenomegaly Auscultation: normal bowel sounds Skin General skin exam: no rashes or lesions noted and dry skin Neuro General: oriented to person, oriented to place and oriented to time Cranial nerves: Yes Equal, round and reactive pupils present Speech: No Abnormal speech present Gait exam (Neuro): Normal gait present Motor exam (neuro): no tremor noted Extrem Right upper extremity: full ROM Left upper extremity: full ROM Right lower extremity: full ROM; no edema Left lower extremity: full ROM; no edema Psych Mental Status: mental status grossly normal Speech and movement: Normal speech and movement present Affect: normal affect Attitude: cooperative Thought process: Normal thought process present Coding Level of Care Code Est Pt Level 4 (78888) Diagnoses BALWINDER (obstructive sleep apnea) G47.33 Class 3 obesity E66.813 Hypertriglyceridemia E78.1 Primary hypertension I10 Hypertension type: primary hypertension MDD (major depressive disorder), recurrent episode, moderate F33.1 Additional Codes JAMES-7 Assessment Billing - JAMES-7 Assessment Tool: JAMES-7 Assessment 70242 ([id number]) PHQ-9 - 71055 - PHQ-9 Billing: Yes ([id number]) Assessment & Plan Assessment & Plan (1) BALWINDER (obstructive sleep apnea): Code(s): G47.33 - Obstructive sleep apnea (adult) (pediatric) Category: Medical Plan: As per HPI patient is using a CPAP machine on a nightly basis. He is followed by [facility]. His sleep study did show evidence of severe obstructive sleep apnea. MEDICAL NECESSITY FOR GLP 1:---> Patient is interested in losing weight in his interested in a GLP 1 though will also help him with his obstructive sleep apnea thus will start Zepbound. (2) Class 3 obesity: Code(s): E66.813 - Obesity, class 3 Category: Medical Plan: ABOVE Patient's BMI at 42, he is interested in a GLP 1 to help him lose weight. He does have comorbid conditions associated with his obesity of obstructive sleep apnea, hypertension and hyperlipidemia. (3) Hypertriglyceridemia: Code(s): E78.1 - Pure hyperglyceridemia Category: Medical Plan: Advised to get fasting lipids done. Has quite elevated triglycerides >500. We will increase his gemfibrozil to 600 b.i.d. to help reduce his triglycerides. He does understand the risk of pancreatitis with having his triglycerides in his range. Will also try to set patient up with a dietitian to help work on a diet plan on reducing cholesterol in his daily diet. Goal triglycerides to be below 250. (4) HTN (hypertension): Code(s): I10 - Essential (primary) hypertension Category: Medical Qualifiers: Hypertension type: primary hypertension Qualified Code(s): I10 - Essential (primary) hypertension Plan: Patient's blood pressure today in office acceptable. He will continue on amlodipine 5 mg daily with good effect on his blood pressure. He is also being treated for his obstructive sleep apnea with nightly CPAP machine. Goal blood pressures to remain below 140/90 (5) MDD (major depressive disorder), recurrent episode, moderate: Code(s): F33.1 - Major depressive disorder, recurrent, moderate Category: Medical Plan: PATIENT'S PHQ-9 SCORE POSITIVE FOR MAJOR DEPRESSIVE DISORDER WHICH HAS BEEN EXISTING CONDITION FOR HIM. HE IS SPEAKING WITH A MENTAL HEALTH THERAPIST AND A PSYCHIATRIST WHO MANAGES HIS MENTAL HEALTH MEDICATIONS. HE HAS BEEN APPLYING FOR DISABILITY DUE TO HIS MENTAL HEALTH DISORDERS NOT ALLOWING HIM TO DO ANY MEANINGFUL WORK. Orders: Orders Complete Blood Count no Diff 03/16/25 E78.2 - Mixed hyperlipidemia Lipid Panel 03/16/25 E78.2 - Mixed hyperlipidemia Comprehensive [place]. Panel Fast 03/16/25 E78.2 - Mixed hyperlipidemia TSH reflex Free T4 03/16/25 E03.9 - Hypothyroidism, unspecified Medications: New tirzepatide (weight loss) (Zepbound) for 4 weeks 2.5 mg (0.5 mL) subcut QWEEK 2 mL 0RF 4 weeks E66.813 - Obesity, class 3, E78.1 - Pure hyperglyceridemia, G47.33 - Obstructive sleep apnea (adult) (pediatric), I10 - Essential (primary) hypertension
--- OUTSIDE RECORDS SUMMARY | 2025-03-16 19:51 | XMS_ITS | Clinical Summary ---
Author Organization [employer] [facility] ity Address [address] [place] [address] Care Team Providers Care Systems Tester Name Role Phone Unavailable Primary Care Provider [...] of 3 - 19+ 3-dose series) 2012 HPV Vaccines (1 - 3-dose SCD M series) 2020 Depression Screening 04/23/2024 COVID-19 Vaccine (1 - 2024-2 6 season) 2024 Influenza Vaccine (#1) 2024 RSV Immunization Adult Patie nts (1 - 1-dose 75+ series) 2068 HIB Vaccines Aged Out No longer eligi [...]
== END 2025-03-16 16:26 | disposition home or self-care (01) ==
LOC: HO.HMCH 15:06
PROVIDERS: PCP Physician Assistant; Visit Provider Physician Assistant
DX: G47.33 Obstructive sleep apnea (adult) (pediatric) (principal); E66.813 Obesity, class 3; F33.1 Major depressive disorder, recurrent, moderate; Z68.41 Body mass index [BMI] 40.0-44.9, adult; E78.1 Pure hyperglyceridemia; I10 Essential (primary) hypertension

== ENCOUNTER → 2025-03-16 15:05 | Outpatient (BNVA) | payer OTHER, SELFPAY | PROVIDERS: PCP Physician Assistant; Visit Provider Physician Assistant | DX: F41.1 Generalized anxiety disorder (principal); E66.9 Obesity, unspecified; G47.33 Obstructive sleep apnea (adult) (pediatric); I10 Essential (primary) hypertension; E66.813 Obesity, class 3; E78.1 Pure hyperglyceridemia; E78.2 Mixed hyperlipidemia; F33.1 Major depressive disorder, recurrent, moderate; Z99.89 Dependence on other enabling machines and devices; Z68.41 Body mass index [BMI] 40.0-44.9, adult | CPT/HCPCS: 96127; 99212 ==